=== PATIENT | female | born 1990 | race Caucasian/White ===

== ENCOUNTER 2016-10-15 20:07 | Observation (INO) ==
[2016-10-15] MEDS ORDERED: ZOFRAN IV ONE (20:33)
[2016-10-15] MEDS ORDERED: MORPHINE IV ONE (20:33)
--- NOTE | 2016-10-15 20:36 | PROVIDER DOCUMENTATION ---
HPI-Abdominal Pain/GI Problem - General Source: patient - History of Present Illness-ABD Nature of Presenting Problems: Pt is a 26 yof who presents to ER via EMS with CC of generalized abdominal pain and body swelling. Pt reports that she has been having these symptoms intermittently since the beginning of the year. Pt reports that she does not attend dialysis anymore because her doctor told her that her kidney function was returning. Pt reports that she is producing urine and is on 160 mg lasix. Pt denies dysuria/hematuria/F/cough/sore throat. On exam, pt has anisocoria, and +4 pitting edema everywhere and was hypertensive (157/139)-(172/133). On exam, pt also has petechiae. 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 denies: anxiety, arm pain, chest pain, constipation, cough, diaphoresis, dizziness, fatigue, fever/chills, headaches, loss of appetite, muscle aches, nausea, pain with inspiration, syncope, vomiting, weakness, trouble walking Last BM: this evening Dark Stools Present?: reports: none noticed Rectal Bleeding: reports: none Rectal Pain: reports: none Emesis Description: reports: none <Zackary Tripp - Last Filed: 10/15/16 21:44> <Warren Mondragon - Last Filed: 10/15/16 21:50> - General Stated Complaint: abdominal pain Time Seen by Provider: 10/15/16 20:10 Allergies/Adverse Reactions: Patient Allergies Allergy/AdvReac Type Severity Reaction Status Date / Time No Known Allergies Allergy Verified 10/15/16 20:49 Home Medications: Home Medication List Medication Instructions Recorded Confirmed Last Taken Type Levothyroxine [Synthroid] 100 microgm PO DAILY 08/22/16 10/11/16 10/10/16 History Ergocalciferol (Vitamin D2) 50,000 unit PO Q7D #12 capsule 09/09/16 10/11/1617 Rx [Vitamin D] Escitalopram [Lexapro] 10 mg PO QPM #60 tablet 09/09/16 10/11/16 10/10/16 Rx Levetiracetam [Keppra] 500 mg PO BID #60 tablet 09/09/16 10/11/16 10/10/16 Rx Multivitamins/Minerals [Centrum 1 each PO DAILY #0 tablet 09/09/16 10/11/16 Rx Tablet] Furosemide [Lasix] 80 mg PO BID #60 tablet 10/08/16 10/11/16 10/10/16 Rx Omeprazole [Prilosec] 40 mg PO DAILY@0700 #30 capsule 10/08/16 10/11/16 Rx CefDINIR [Omnicef] 300 mg PO DAILY #7 capsule 10/13/16 Unknown Rx Clonidine [Catapres] 0.1 mg PO BID #60 tablet 10/13/16 Unknown Rx Potassium Chloride E.r. [Klor-Con] 30 meq PO DAILY #40 tablet 10/13/16 Unknown Rx Prednisone 60 mg PO DAILY #0 tablet 10/13/16 Unknown Rx Review of Systems - Adult - REVIEW OF SYSTEMS - ADULT Constitutional: denies: chills, fever, fatique, night sweats Eyes: reports: other (anisocoria). denies: dry eyes, blurred vision, double vision, eye pain Ears, Nose, Mouth & Throat: reports: no symptoms reported Cardiovascular: reports: edema. 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 denies: chronic cough , cough, dyspnea on exertion, excessive sputum production, hemoptysis, pleurisy , wheezing Gastrointestinal: reports: abdominal pain, diarrhea. denies: hematemesis, constipation, difficulty swallowing, frequent heartburn, nausea, poor appetite, rectal bleeding, vomiting Genitourinary: denies: dysuria, flank pain, frequent UTI's, hematuria Musculoskeletal: reports: back pain, joint swelling. denies: bone pain, frequent leg cramps, joint pain, muscle aches, muscle weakness, neck pain Integumentary: reports: rash (petechiae on abdomen), skin thickening (+4 pitting edema). denies: hives, hair loss, itching, mole changes, nail changes, skin sores/ulcer Neurological: reports: no symptoms reported Psychiatric: reports: no symptoms reported Endocrine: denies: change in skin pigment, excessive sweating, goiter, cold intolerance, heat intolerance, increased hunger, increased thirst, polyuria Hematologic/Lymphatic: reports: no symptoms reported Allergic/Immunologic: reports: no symptoms reported All Other Systems: Reviewed and Negative <TrippZackary - Last Filed: 10/15/16 21:44> Past History - Adult - PAST MEDICAL HISTORY-ADULT Review of Records: reports: Nursing Assessment Review, Medications Reviewed Genitourinary: reports: kidney disease (acute kidney failure) - PRIOR SURGERIES/PROCEDURES Surgical/Procedure History: reports: reviewed, not pertinent - IMMUNIZATION STATUS Childhood Immunizations: See Nurse Assessment Flu Vaccine: See Nurse Assessment <Zackary Tripp - Last Filed: 10/15/16 21:44> Physical Exam-General - PHYSICAL EXAM-ADULT Initial Vital Signs Reviewed: Yes - CONSTITUTIONAL General Appearance: appears well, alert, severe distress. negative: obese, lethargic, slow to respond, obtunded, combative - EYES Eyes: anisocoria, pale conjunctivae. negative: photophobia, scleral icterus, subconjunctival hemorrhage, sunken eyes - RESPIRATORY Respiratory: chest non-tender, lungs clear, normal breath sounds. negative: respiratory distress, decreased breath sounds, accessory muscle use, crackles, rales, rhonchi, stridor, wheezing - CARDIOVASCULAR Cardiovascular: normal peripheral pulses, tachycardia, other (HTN (157/139)-(172 /133)). negative: bradycardia - GASTROINTESTINAL (ABDOMEN) Abdominal Exam: soft, tenderness (generalized), other (rash (petechiae)). negative: non tender, hernia - MUSCULOSKELETAL Back Exam: no CVA tenderness, no vertebral tenderness, swelling. negative: CVA tenderness, decreased range of motion, muscle spasm, vertebral tenderness Extremity: normal range of motion, non-tender, normal gait, pedal edema (+4), swelling. negative: no pedal edema, erythema, inflammation, tenderness - SKIN Integumentary: petechiae (abdomen), swelling, tenderness (abdominal). negative : diaphoresis, erythema, pallor - NEUROLOGIC Neurologic: grossly normal, no motor/sensory deficits. negative: facial droop, focal weakness, motor weakness, sensory deficit - PSYCHIATRIC Psych/Mental Status: normal mood/affect, normal thought content, normal thought process, oriented x 3 <Zackary Tripp - Last Filed: 10/15/16 21:44> Progress - PLAN OF CARE/RESULTS Progress/Plan/Lab Results: POC: (B/P-pain)rx; blood work; X-rays. Vital Signs - 24 hr 10/15/16 10/15/16 10/15/16 20:30 20:55 21:05 Temperature 97.8 F Pulse Rate 90 97 H Respiratory 18 16 Rate Blood Pressure 157/139 172/133 145/121 O2 Sat by Pulse 99 95 Oximetry 10/15/16 21:33 Temperature Pulse Rate 133 H Respiratory 20 Rate Blood Pressure 116/75 O2 Sat by Pulse 97 Oximetry Orders Category Date Time Status FLAT/UPRIGHT ABD/1 VIEW CHEST [RAD] Stat Exams 10/15/16 20:32 Taken CBC WITH ELECTRONIC DIFF [HEME] Stat Lab 10/15/16 20:15 Completed CMP [COMPREHENSIVE METABOLIC PANEL] [CHEM] Stat Lab 10/15/16 20:15 Completed LIPASE [CHEM] Stat Lab 10/15/16 20:15 Completed MAGNESIUM [CHEM] Stat Lab 10/15/16 20:15 Completed phos [PHOSPHORUS] [CHEM] Stat Lab 10/15/16 20:15 Completed Hydralazine [Apresoline] Med 10/15/16 21:08 Discontinued 20 mg IV NOW ONE Morphine Med 10/15/16 20:33 Discontinued 4 mg IV NOW ONE Ondansetron [Zofran] Med 10/15/16 20:33 Discontinued 4 mg IV NOW ONE Laboratory Tests 10/15/16 10/15/16 20:15 20:15 WBC 19.27 H RBC 3.88 L Hgb 12.4 Hct 33.5 L MCV 86.3 MCH 32.0 H MCHC 37.0 RDW Std Deviation 15.4 H Plt Count 570 H MPV 9.6 Immature Gran % (Auto) 2.2 H Neut % (Auto) 78.6 H Lymph % (Auto) 13.9 L [place] % (Auto) 5.0 Eos % (Auto) 0.2 Baso % (Auto) 0.1 Immature Gran # (Auto) 0.42 H Neut # (Auto) 15.17 H Lymph # (Auto) 2.67 [place] # (Auto) 0.96 H Eos # (Auto) 0.03 Baso # (Auto) 0.02 Sodium 128 L Potassium 4.0 Chloride 100 Carbon Dioxide 14 L Anion Gap 14 BUN 54 H Creatinine 1.5 H Estimated GFR/1.73 m2 43 BUN/Creatinine Ratio 36 Glucose 102 Calculated Osmolality 272 Calcium 7.5 L Phosphorus 6.0 H Magnesium 1.7 Total Bilirubin < 0.10 L AST 22 ALT 19 Alkaline Phosphatase 96 Total Protein 3.6 L Albumin 1.2 L Globulin 2.4 Albumin/Globulin Ratio 0.5 Lipase 56 - XRAY 1 XRAY: Bilateral XRAY Study: Abdomen Impression: See EMR Report XRAY Interpretation: Worsening pleural effusions, otherwise normal - CONSULTS/PCP/HOSPITALIST Notification #1 *Consult/PCP/Hospitalist*: Dr. Faye (Hospitalist) Time Discussed: 21:44 Consult Disposition: Admit (Dr. Mondragon gave report to Dr. Faye) <Zackary Tripp - Last Filed: 10/15/16 21:44> Departure <Zackary Tripp - Last Filed: 10/15/16 21:44> - Departure Time of Disposition Order: 21:50 Certified Medical Emergency: Emergent <Warren Mondragon - Last Filed: 10/15/16 21:50> - Departure DIAGNOSIS: Anasarca Disposition: ADMITTED INPATIENT 09 Condition: Fair Referrals: None,PCP [Primary Care Provider] - Attestation - Scribe Verification/Attestation Scribe:: Zackary Tripp Acting as Scribe for:: Warren Mondragon Scribe documention review:: This chart was documented by a scribe and accurately reflects the service the provider performed and the decisions made by the provider. <Zackary Tripp - Last Filed: 10/15/16 21:44> Physician Attestation
[2016-10-15] MEDS ORDERED: APRESOLINE IV ONE ×2 (20:49→21:08)
[2016-10-15 20:57] LABS: BASO% 0.1 % (0.0-0.8); EOS# 0.03 X1000 (0.0-0.7); EOS% 0.2 % (0.0-10.0); HEMATOCRIT 33.5 % (37.0-47.0); HEMOGLOBIN 12.4 g/dL (12.0-16.0); IMM GRAN# 0.42 X1000 (0.0-0.04); IMM GRAN% 2.2 % (0.0-0.5); LYMPH# 2.67 X1000 (1.2-3.4); LYMPH% 13.9 % (20.5-51.1); MANUAL DIFF NEEDED? NO; MCV 86.3 FL (81-99); MONO# 0.96 X1000 (0.11-0.59); MPV 9.6 FL (7.4-10.4); NEUT% 78.6 % (42.2-75.2); PLT 570 X1000 (130-400); RBC 3.88 XMIL (4.2-5.4)
[2016-10-15 21:36] LABS: AGAP 14; ALBUMIN 1.2 g/dL (3.5-5.0); ALKALINE PHOSPHATASE 96 U/L (32-104); BUN 54 mg/dL (8-22); CALCIUM 7.5 mg/dL (8.8-10.2); CHLORIDE 100 mmol/L (98-107); COSMO 272; GOT 22 U/L (10-30); GPT 19 U/L (10-36); LIPASE 56 U/L (13-60); MAGNESIUM 1.7 mg/dL (1.5-2.7); SODIUM 128 mmol/L (136-145); TCO2 14 mmol/L (25-35); TOTAL BILIRUBIN < 0.10 mg/dL (0.20-1.00); TOTAL PROTEIN 3.6 g/dL (6.3-8.3)
[2016-10-15 22:58] LABS: URINE MICRO REVIEW NEEDED? NO; URINE SOURCE VOIDED
[2016-10-15 23:01] LABS: BILIRUBIN URINE NEGATIVE (NEGATIVE); BLOOD URINE MODERATE (NEGATIVE); COLOR YELLOW; GLUCOSE URINE 500 mg/dL (NEGATIVE); LEUKOCYTES URINE NEGATIVE (NEGATIVE); NITRITE URINE NEGATIVE (NEGATIVE); PH URINE 6.5; PROTEIN URINE >600 mg/dL (NEGATIVE); SP GRAVITY URINE 1.033; TURBIDITY URINE HAZY (CLEAR); UROBILINOGEN URINE NORMAL (NORMAL)
[2016-10-15 23:02] LABS: UR EPITHELIAL CELLS <10 /HPF (<10); URINE BACTERIA NEGATIVE /HPF; URINE WBC TNTC /HPF (<10)
[2016-10-15] MEDS ORDERED: ZOFRAN IV PRN (23:28)
[2016-10-15] MEDS ORDERED: TYLENOL PO PRN (23:28)
[2016-10-15] MEDS ORDERED: LASIX 100 MG in NS 90 ML IV SCH (23:30)
[2016-10-16] MEDS ORDERED: MORPHINE IV PRN (00:03)
[2016-10-16 01:01] LABS: INR 0.9; PROTIME 9.5 Seconds (9.2-11.7)
[2016-10-16] MEDS: HEPARIN SUBQ SCH ×2 (01:05→12:40)
--- NOTE | 2016-10-16 03:06 | HISTORY AND PHYSICAL ---
CHIEF COMPLAINT: Abdominal discomfort and bloating but she has also had progressive swelling. Unclear if that is a big change from her baseline but she does have significant pitting edema of her lower extremities at least 2 to 3+. She has had abdominal complaints mostly having difficulty eating because of bloating and issues associated with that. Her urinary output has not changed. She is on high-dose Lasix and has been off of dialysis for about a month. But she has had progressive abdominal swelling, progressive lower extremity swelling, and difficulty eating. No trevor obstructive signs. Blood work in the ER was not a big change from previous. Her creatinine has been fairly stable. She just left I think a couple days ago or just had labs a couple days ago. Her albumin is very low but is about where it was about 2 days ago and it looks like she was discharged the , kind of was at baseline. No nausea, vomiting, but poor p.o. intake. Again, her labs looked fairly stable. She was placed in observation for her abdominal discomfort or at least I am going to change her status. PAST MEDICAL HISTORY: 1. 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 2. Dyslipidemia. 3. Seizures. 4. Hypertension. PAST SURGICAL HISTORY: She has a dialysis catheter. SOCIAL HISTORY: No tobacco. No ethanol. She quit alcohol maybe last year and no tobacco for at least the last month. FAMILY HISTORY: Reviewed and noncontributory. ALLERGIES: No known drug allergies. MEDICATIONS: She is on Synthroid, multivitamin, Keppra, Lexapro 10, vitamin D2, Lasix 80 b.i.d., Prilosec 40 daily, clonidine 0.1 b.i.d., Klor-Con 30 daily, Omnicef 300 daily and prednisone 60 daily. REVIEW OF SYSTEMS: Otherwise negative times a 10 point review of systems. PHYSICAL EXAMINATION: VITAL SIGNS: Blood pressure 137/87, heart rate of 119, respiratory rate of 16, temp 97.8 degrees, 93% on room air. GENERAL: A well-developed female, no acute distress. HEAD: Normocephalic, atraumatic. EYES: Pupils equal, round, reactive to light. Extraocular movements were intact. EAR/NOSE/THROAT: She had moist mucous membranes. NECK: Supple. CARDIOVASCULAR: Regular rate and rhythm. No murmurs, gallops, or rubs. PULMONARY: Bilateral breath sounds clear to auscultation. GASTROINTESTINAL: Soft, protuberant. I did not appreciate a fluid wave. EXTREMITIES: No clubbing or cyanosis. LYMPHATIC: She had 2+ pitting edema up to her knees. She had periorbital edema. It is certainly possible she has ascites on exam but it was not grossly obvious. NEUROLOGICAL: Exam was nonfocal. LABORATORY DATA: Sodium is 128. BUN and creatinine of 54 and 1.5 which is not different from where it has been. Albumin of 1.2. Triglycerides are 1965 previously. Hematology: Her white count has jumped up to 19,000 but I think she has been on high-dose steroids since discharge which again was only a couple days ago which presumably is for her minimal change disease. PROBLEM LIST: 1. Anasarca which is a fairly chronic issue with her. Again, I am not sure how she is compared to her baseline. Her weight, she has not been weighed here. Difficult to compare that. Clinically, I am not sure how far off she is there. However, we will go ahead and give her IV diuretic and albumin and continue her steroids and we will have Dr. Jiménez and Dr. Roldan reassess the patient tomorrow and decide if any further issues are needed. 2. Abdominal discomfort. Certainly there was a concern in the ER per Dr. Mondragon about bowel edema which certainly could be a concern. At this point, there is no gross evidence of obstruction or malabsorption so we will continue her diet and observe. I believe plain films have been obtained which have been unremarkable. We will check amylase, lipase and hepatic function, and follow. 3. Hypertension. We will continue to monitor and use discretion on her medications, adjust her medicines accordingly. She is on clonidine at this point alone. She is tachycardic. We may need to add beta hector and follow. 4. Seizure disorder, appears to be stable. We will continue to monitor. Apparently, Dr. Jiménez is her PCP. I was unaware of that initially. He will resume care or his group tomorrow.
[2016-10-16] MEDS ORDERED: ALBUMIN 25% IV SCH ×2 (03:15→04:00)
[2016-10-16] MEDS ORDERED: SYNTHROID PO SCH ×2 (07:00→09:00)
[2016-10-16] MEDS ORDERED: PRILOSEC PO SCH (07:00)
[2016-10-16] MEDS ORDERED: MAXIPIME 1 GM/NS 50 ML IV SCH (07:30)
[2016-10-16 07:39] LABS: AMYLASE 45 U/L (20-200); LIPASE 43 U/L (13-60)
[2016-10-16 07:46] LABS: AGAP 14; ALBUMIN 2.1 g/dL (3.5-5.0); ALKALINE PHOSPHATASE 79 U/L (32-104); BUN 58 mg/dL (8-22); CALCIUM 7.9 mg/dL (8.8-10.2); CHLORIDE 104 mmol/L (98-107); COSMO 278; SODIUM 131 mmol/L (136-145); TCO2 13 mmol/L (25-35); TOTAL BILIRUBIN < 0.10 mg/dL (0.20-1.00); TOTAL PROTEIN 4.1 g/dL (6.3-8.3)
[2016-10-16 08:13] LABS: GOT 13 U/L (10-30); GPT 17 U/L (10-36)
[2016-10-16 08:57] VITALS: BP 152/98
[2016-10-16] MEDS ORDERED: KLOR-CON PO SCH (09:00)
[2016-10-16] MEDS ORDERED: PREDNISONE PO SCH (09:00)
[2016-10-16] MEDS ORDERED: KEPPRA PO SCH (09:00)
[2016-10-16] MEDS ORDERED: CATAPRES PO SCH ×2 (09:00→10:00)
[2016-10-16] MEDS ORDERED: CENTRUM TABLET PO SCH ×2 (09:00)
[2016-10-16] MEDS ORDERED: OMNICEF PO SCH ×2 (09:00)
--- NOTE | 2016-10-16 09:39 | Diag Imaging Result Document ---
PROCEDURE NAME: FLAT/UPRIGHT ABD/1 VIEW CHEST - 10/15/2016 FLAT AND UPRIGHT ABDOMEN: FINDINGS: There are some air fluid levels present in the colon. The stomach is not particularly distended. There is some gas in the rectum. The possibility of ascites cannot be excluded. There is no evidence of organomegaly or definite mass. IMPRESSION: Nonspecific abdomen. Possible ascites. PA CHEST: FINDINGS: There is increased pleural fluid on the right compared to 10/13/2016 with increasing compressive atelectasis in both lung bases. IMPRESSION: Worsened pleural effusions and atelectasis.
[2016-10-16] MEDS ORDERED: MIRALAX PO SCH (10:00)
--- NOTE | 2016-10-16 10:02 | Diag Imaging Result Document ---
PROCEDURE NAME: US ABDOMEN-COMPLETE - 10/16/2016 ABDOMINAL ULTRASOUND: FINDINGS: The aorta and inferior vena cava are normal in appearance. There is ascites. The liver is hyperechoic in appearance. The spleen is not enlarged. There is no evidence of hydronephrosis, however, the kidneys are somewhat hyperechoic in appearance. There is no evidence of biliary dilatation. The common bile duct measuring less than 4 mm. There is antegrade flow in the portal vein. The pancreas is obscured. The gallbladder is not well demonstrated but there is no sonographic Damon sign. No stones were seen in the gallbladder at the time of the previous study of 08/22/2016. The spleen is not enlarged. IMPRESSION: Ascites. Medical renal disease. No evidence of acute disease otherwise.
[2016-10-16 10:33] LABS: HEMATOCRIT 27.2 % (37.0-47.0); MCH 33.1 PG (27-31); MCHC 36.8 g/dL (33-37); MCV 90.1 FL (81-99); MPV 9.2 FL (7.4-10.4); RBC 3.02 XMIL (4.2-5.4)
--- NOTE | 2016-10-16 11:39 | PROGRESS NOTE ---
DATE: 10/16/2016 SUBJECTIVE: Patient has returned overnight after recent hospitalization. She had complained of some gas pain, abdominal pain. She has prominent ascites which is going to be present. Dr. Roldan has made her aware of this. She is stooling about every other day. She has taken some Tylenol but from time to time has sharp stabbing pains in the abdomen. We reviewed the abdominal ultrasound from this morning which shows ascites and medical renal disease. Otherwise negative. Patient also with flat and upright of the abdomen which shows pleural effusions and compressive atelectasis both lungs, nonspecific abdomen, ascites noted. OBJECTIVE: Patient is saturating 95-97% on room air. She is lying flat. She is afebrile. Pulse 77, respirations 20, blood pressure 152/98. CV: RRR without murmur. Lungs: CTA. Cannot rule out minimal decreased breath sounds at lung bases but no crackles. Abdomen: Is very protuberant, she does have a prominent ascites, there is no point tenderness. Extremities: Two to 3+ lower extremity edema is noted. She states she is putting out a lot of urine at home. [place]: [place] [address] on prednisone at 60 mg daily. Hemoglobin 12.4, platelets 570,000. Sodium 131, potassium 4.0, CO2 13. BUN 58, creatinine 1.5, glucose 91. Liver function tests are normal. Amylase, lipase normal. TSH 0.18. ASSESSMENT: 1. Abdominal pain thought related to the ascites and prominent gas pain. 2. Anasarca related to renal insufficiency and renal disease associated with nephrotic syndrome and possible minimal change disease. 3. Hypertension. 4. Seizure disorder. 5. Compressive atelectasis. PLAN: At this time the patient does not appear to show any significant change from her recent discharge from the hospital except for the gas pains. We are going to treat that with Gaviscon 2 p.o. b.i.d. Add MiraLAX every day to see if that will help her bowel movements. We will continue to try to refrain from any prominent pain medications such as narcotics which might make her have OIC. We will give clonidine at increased dose of 0.[address] Roldan has spoken with the patient. He has spoken with me in detail about the patient. He plans on consideration for repeat kidney biopsy in 3 weeks or if the patient does not show improvement. For now advised continued fluid limitation to 16 ounces a day, low sodium diet which is imperative. We will try these measures and discharge the patient home if okay with Dr. Roldan after he sees her this morning. She will follow up in my office in 3-4 days or sooner. Should she worsen she can come back to the ER.
[2016-10-16] MEDS ORDERED: GAVISCON LIQUID PO SCH (13:00)
[2016-10-16] MEDS ORDERED: GAVISCON PO SCH (13:00)
[2016-10-16] MEDS ORDERED: LEXAPRO PO SCH ×2 (21:00)
[2016-10-17] MEDS ORDERED: VITAMIN D PO SCH ×2 (09:00)
[2016-10-17] MEDS ORDERED: OMNICEF PO SCH (09:00)
== END 2016-10-16 15:11 | disposition home or self-care (01) ==
LOC: EDBD → ED 20:07 → INTOOBSV 23:31 → EDIPHOLD 23:31 → 4N 10-16 05:34
PROVIDERS: ADMIT Family Medicine; ATTEND Family Medicine
DX: R60.9 Edema, unspecified (principal); R10.84 Generalized abdominal pain; I10 Essential (primary) hypertension; R23.3 Spontaneous ecchymoses; M54.9 Dorsalgia, unspecified; M54.2 Cervicalgia; R19.7 Diarrhea, unspecified; R21 Rash and other nonspecific skin eruption; R06.02 Shortness of breath; R19.00 Intra-abdominal and pelvic swelling, mass and lump, unspecified site; E78.5 Hyperlipidemia, unspecified; Z87.891 Personal history of nicotine dependence; Z79.899 Other long term (current) drug therapy; G40.909 Epilepsy, unspecified, not intractable, without status epilepticus; R18.8 Other ascites; R14.3 Flatulence; J98.11 Atelectasis; N04.9 Nephrotic syndrome with unspecified morphologic changes; Z79.51 Long term (current) use of inhaled steroids
CPT/HCPCS: 74022; 76700; 80053; 81001; 82150; 83690; 83735; 84100; 84443; 85025; 85027; 85610; 85730; 96374; J0360; J0692; J1644; J1940; J2270; J2405; J7512; P9047

== ENCOUNTER 2016-10-19 09:37 | Emergency (ER) ==
--- NOTE | 2016-10-19 09:54 | PROVIDER DOCUMENTATION ---
HPI-General Adult - General Source: patient - History of Present Illness -Gen Adult Nature of Presenting Problems: Patient is a 26 y/o F that presents to the ER with swelling to entire body and chest pain. Patient reports having issues since 2015. She was placed on dialysis for kidney failure. Dialysis was stopped due her kidney function improving around her birthday (09/28/2014). Since then she has edema that has increased, shortness of breath, and chest pain. She has petichae to her abdomen. She denies fever/chills, n/v/d. Location of Pain/Injury: reports: face, abdomen, lower body Pain Radiation: reports: no radiation Severity: reports: moderate Onset/Duration: reports: unsure Timing: reports: still present, constant Context/Activities at Onset: reports: none Modifying Factors: improves with: nothing Associated Symptoms: reports: chest pain, genitourinary problems, swelling/mass in abdomen. denies: diaphoresis, diarrhea, dizziness, fever/chills, nausea, shortness of breath, vomiting Similar Symptoms Previously?: Yes Recently seen or treated by another doctor?: Yes <Keanu Cedeño - Last Filed: 10/19/16 11:30> <Manuel Siegel I - Last Filed: 10/19/16 11:45> - General Stated Complaint: swelling all over Time Seen by Provider: 10/19/16 09:47 Allergies/Adverse Reactions: Patient Allergies Allergy/AdvReac Type Severity Reaction Status Date / Time No Known Allergies Allergy Verified 10/19/16 09:52 Home Medications: Home Medication List Medication Instructions Recorded Confirmed Last Taken Type Levothyroxine [Synthroid] 100 microgm PO DAILY 08/22/16 10/19/16 10/19/16 08:00 History Ergocalciferol (Vitamin D2) 50,000 unit PO Q7D #12 capsule 09/09/16 10/19/16 Rx [Vitamin D] Escitalopram [Lexapro] 10 mg PO QPM #60 tablet 09/09/16 10/19/16 10/15/16 Rx Levetiracetam [Keppra] 500 mg PO BID #60 tablet 09/09/16 10/19/16 10/15/16 Rx Multivitamins/Minerals [Centrum 1 each PO DAILY #0 tablet 09/09/16 10/19/16 Rx Tablet] Furosemide [Lasix] 80 mg PO BID #60 tablet 10/08/16 10/19/16 10/15/16 Rx Potassium Chloride E.r. [Klor-Con] 30 meq PO DAILY #40 tablet 10/13/16 10/19/16 10/15/16 Rx Prednisone 60 mg PO DAILY #0 tablet 10/13/16 10/19/16 10/19/16 08:00 Rx Acetaminophen [Tylenol] 650 mg PO Q6H PRN PRN #0 tablet 10/16/16 10/19/16 Unknown Rx Clonidine [Catapres] 0.2 mg PO BID #60 tablet 10/16/16 10/19/16 Unknown Rx Metolazone [Zaroxolyn] 5 mg PO DAILY #30 tablet 10/19/16 Unknown Rx Review of Systems - Adult - REVIEW OF SYSTEMS - ADULT Constitutional: denies: chills, fever Eyes: reports: no symptoms reported Ears, Nose, Mouth & Throat: denies: ear discharge, ear pain, sinus problem, throat pain, throat swelling Cardiovascular: reports: chest pain, edema (face, abdomen, bilateral lower legs) . denies: palpitations, syncope Respiratory: denies: cough, shortness of breath, wheezing Gastrointestinal: denies: abdominal pain, diarrhea, nausea, vomiting Genitourinary: reports: urinary retention. denies: dysuria, hematuria Musculoskeletal: denies: back pain, neck pain Integumentary: reports: no symptoms reported Neurological: denies: dizziness/vertigo, headache/migraines, seizure, syncope Psychiatric: reports: no symptoms reported Endocrine: reports: no symptoms reported Hematologic/Lymphatic: reports: no symptoms reported Allergic/Immunologic: reports: no symptoms reported All Other Systems: Reviewed and Negative <Keanu Cedeño - Last Filed: 10/19/16 11:30> Past History - Adult - PAST MEDICAL HISTORY-ADULT Review of Records: reports: Old Records Reviewed, Nursing Assessment Review, Medications Reviewed Genitourinary: reports: dialysis (last one was sep.28 ( estimate by patient)) , kidney disease (acute kidney failure with nephrotic syndrome) Neurological: reports: denies history, Seizures/Epilepsy Endocrine/Immune: reports: thyroid disorder (hypo) - PRIOR SURGERIES/PROCEDURES Surgical/Procedure History: reports: reviewed, not pertinent - IMMUNIZATION STATUS Childhood Immunizations: See Nurse Assessment Flu Vaccine: See Nurse Assessment - FAMILY HISTORY Family History: reviewed, not pertinent - SOCIAL HISTORY Smoking: quit greater than 1 year, cigarettes Living Situation: family <Keanu Cedeño - Last Filed: 10/19/16 11:30> Physical Exam-General - PHYSICAL EXAM-ADULT Initial Vital Signs Reviewed: Yes - CONSTITUTIONAL General Appearance: alert, mild distress, moderate distress - EYES Eyes: PERRL/EOMI, other (karla-orbital swelling) - HEAD, EARS, NOSE, MOUTH & THROAT HENMT: moist mucous membranes, pharynx normal. negative: hearing deficit - NECK Neck: full range of motion, normal inspection - RESPIRATORY Respiratory: no accessory muscle use, respiratory distress (mild), rales ( bilateral bases) - CARDIOVASCULAR Cardiovascular: regular rate, rhythm, no JVD, no murmur - GASTROINTESTINAL (ABDOMEN) Abdominal Exam: normal bowel sounds, non tender, other (anasarca) - MUSCULOSKELETAL Extremity: no calf tenderness, pelvis stable, pedal edema (4 plus pitting) - SKIN Integumentary: petechiae (to abdomen), swelling. negative: jaundice - NEUROLOGIC Neurologic: grossly normal, no motor/sensory deficits - PSYCHIATRIC Psych/Mental Status: normal mood/affect, normal thought content, normal thought process, oriented x 3 <Keanu Ceedño - Last Filed: 10/19/16 11:30> Progress - PLAN OF CARE/RESULTS Progress/Plan/Lab Results: plan of care-labs 1128-Dr.Gladish irwin Vital Signs Temp Pulse Resp BP Pulse Ox 10/19/16 10:43 80 17 153/112 97 10/19/16 10:36 72 10 L 148/97 100 10/19/16 10:21 77 151/111 98 10/19/16 10:05 81 13 131/98 96 10/19/16 09:39 98.0 F 74 19 148/108 99 No Known Allergies Allergy (Verified 10/19/16 09:52) Levothyroxine [Synthroid] 100 microgm PO DAILY 08/22/16 Ergocalciferol (Vitamin D2) [Vitamin D] 50,000 unit PO Q7D #12 capsule 09/09/16 Escitalopram [Lexapro] 10 mg PO QPM #60 tablet 09/09/16 Levetiracetam [Keppra] 500 mg PO BID #60 tablet 09/09/16 Multivitamins/Minerals [Centrum Tablet] 1 each PO DAILY #0 tablet 09/09/16 Furosemide [Lasix] 80 mg PO BID #60 tablet 10/08/16 Potassium Chloride E.r. [Klor-Con] 30 meq PO DAILY #40 tablet 10/13/16 Prednisone 60 mg PO DAILY #0 tablet 10/13/16 Acetaminophen [Tylenol] 650 mg PO Q6H PRN PRN #0 tablet 10/16/16 Clonidine [Catapres] 0.2 mg PO BID #60 tablet 10/16/16 Dietary Diet Renal Diet Start TueOct 19 1125 I&O 10/18/16 10/19/16 10/20/16 06:59 06:59 06:59 Output Total 50 Balance -50 Laboratory 10/19/16 10/19/16 10/19/16 10:35 09:55 09:55 WBC RBC Hgb Hct MCV MCH MCHC RDW Std Deviation Plt Count MPV Immature Gran % (Auto) Neut % (Auto) Lymph % (Auto) [place] % (Auto) Eos % (Auto) Baso % (Auto) Immature Gran # (Auto) Neut # (Auto) Lymph # (Auto) [place] # (Auto) Eos # (Auto) Baso # (Auto) Sodium 132 L Potassium 4.3 Chloride 106 Carbon Dioxide 13 L Anion Gap 13 BUN 55 H Creatinine 1.3 H Estimated GFR/1.73 m2 50 BUN/Creatinine Ratio 42 Glucose 76 Calculated Osmolality 278 Calcium 7.7 L Total Bilirubin < 0.10 L AST 15 ALT 18 Alkaline Phosphatase 90 Creatine Kinase 45 Troponin T 0.031 Total Protein 3.4 L Albumin 1.3 L Globulin 2.1 Albumin/Globulin Ratio 0.6 Plasma Lactate Urine Source CATH Urine Color ORANGE Urine Turbidity TURBID Urine pH 6.5 Ur Specific [place] 1.028 Urine Protein 300 A Ur Glucose (Stick) 300 A Ur Ketones (Stick) NEGATIVE Urine Blood MODERATE A Urine Nitrite NEGATIVE Urine Bilirubin NEGATIVE Urobilinogen Dipstick NORMAL Urine Leukocytes NEGATIVE Urine WBC (Auto) TNTC A Urine RBC (Auto) TNTC A U Epithel Cells (Auto) >10 A Urine Bacteria (Auto) NEGATIVE Urine Crystals Not Reportable Small Round Cells Not Reportable Urine Casts NONE SEEN Urine Yeast-like Cells PRESENT 10/19/16 10/19/16 09:55 09:55 WBC 16.90 H RBC 3.82 L Hgb 11.9 L Hct 33.5 L MCV 87.7 MCH 31.2 H MCHC 35.5 RDW Std Deviation 16.0 H Plt Count 500 H MPV 9.1 Immature Gran % (Auto) 1.5 H Neut % (Auto) 68.6 Lymph % (Auto) 22.3 [place] % (Auto) 7.3 Eos % (Auto) 0.2 Baso % (Auto) 0.1 Immature Gran # (Auto) 0.25 H Neut # (Auto) 11.59 H Lymph # (Auto) 3.77 H [place] # (Auto) 1.23 H Eos # (Auto) 0.04 Baso # (Auto) 0.02 Sodium Potassium Chloride Carbon Dioxide Anion Gap BUN Creatinine Estimated GFR/1.73 m2 BUN/Creatinine Ratio Glucose Calculated Osmolality Calcium Total Bilirubin AST ALT Alkaline Phosphatase Creatine Kinase Troponin T Total Protein Albumin Globulin Albumin/Globulin Ratio Plasma Lactate 0.8 Urine Source Urine Color Urine Turbidity Urine pH Ur Specific [place] Urine Protein Ur Glucose (Stick) Ur Ketones (Stick) Urine Blood Urine Nitrite Urine Bilirubin Urobilinogen Dipstick Urine Leukocytes Urine WBC (Auto) Urine RBC (Auto) U Epithel Cells (Auto) Urine Bacteria (Auto) Urine Crystals Small Round Cells Urine Casts Urine Yeast-like Cells Orders Category Date Time Status Cardiac Monitoring DIRECTED Care 10/19/16 10:03 Active Conde Cath Insertion ORDERED Care 10/19/16 10:30 Active IV Insertion ORDERED Care 10/19/16 10:03 Active Notify of + Sepsis Screen NOW Care 10/19/16 10:03 Active Renal Diet Diet 10/19/16 11:25 Active CHEST-1 VIEW [RAD] Stat Exams 10/19/16 10:05 Draft BLOOD CULTURE [BLDCUL] Stat Lab 10/19/16 10:00 Received CBC WITH DIFF [HEME] Stat Lab 10/19/16 09:55 Completed CK PROFILE [SP CHEM] Stat Lab 10/19/16 09:55 Completed COMPREHENSIVE METABOLIC PANEL [CHEM] Stat Lab 10/19/16 09:55 Completed LACTATE, PLASMA [CHEM] Stat Lab 10/19/16 09:55 Completed ROUTINE CULTURE [RM] Routine Lab 10/19/16 10:03 Ordered TROPONIN T Stat Lab 10/19/16 09:55 Completed URINALYSIS W/POSS RFLX CULT [URINALYSIS] Stat Lab 10/19/16 10:35 Completed URINE CULTURE [RM] Routine Lab 10/19/16 11:04 Received URINE MANUAL MICROSCOPIC [URINALYSIS] Stat Lab 10/19/16 10:35 Completed Oxygen Device Stat Oth 10/19/16 10:03 Active pt will be d/c home f/u with , pt was clinically stable for her condition. Rx given - EKG 1 Time of EKG reading by physician:: 09:45 EKG Read and Signed by:: Manuel Siegel EKG Interpretation (*Must complete 3 of following elements*): Abnormal Rate: 79 Rhythm: Sinus Rhythm with PVCs [place]: normal QRS: normal MD Interval: normal ST Wave: normal - XRAY 1 XRAY Study: Chest Impression: Abnormal XRAY Interpretation: slight worsening pulmonary vascular congestion, Bilateral pleural effusion - CONSULTS/PCP/HOSPITALIST Notification #1 *Consult/PCP/Hospitalist*: (nephrology) Time Discussed: 11:30 Reason/Comments: follows her in clinic Consult Disposition: F/U in office (Add metolozone 3 days on and 3 days off. Continue home meds. No need for dialysis. No need for admission) <Keanu Cedeño - Last Filed: 10/19/16 11:30> - PLAN OF CARE/RESULTS Progress/Plan/Lab Results: 1140: case discusse with Dr. Roldan (activities director), who recommends zaroxyln (3 days on and 3 days off). She is to continue the prednisone and follow up as needed with her pcp. <Manuel Siegel I - Last Filed: 10/19/16 11:45> Departure - Departure Certified Medical Emergency: Emergent <Keanu Cedeño - Last Filed: 10/19/16 11:30> - Departure Time of Disposition Order: 11:42 Certified Medical Emergency: Emergent <Manuel Siegel I - Last Filed: 10/19/16 11:45> - Departure DIAGNOSIS: Anasarca, Nephrotic syndrome Disposition: HOME 01 Condition: Stable Additional Instructions: ED Follow Up Instructions: You have been treated by a care provider in the Emergency Department. These instructions are being provided to you so you can have an understanding of how to care for yourself upon discharge. Upon discharge from the Emergency Department, you are responsible for making arrangements for follow-up care by a physician of your choice. Take all prescribed medications as directed. Return to the Emergency Department immediately for any new or worsening symptoms. You may call the Physician Referral phone number at [phone] to obtain a list of Physicians who are taking new patients. Prescriptions: Metolazone [Zaroxolyn] 5 mg PO DAILY #30 tablet Referrals: Fantasma Jiménez MD [Primary Care Provider] - (as needed) Arnav Roldan MD [STAFF PHYSICIAN] - Call for Appoint. 1-2days Attestation - Scribe Verification/Attestation Scribe:: Keanu Cedeño Acting as Scribe for:: Manuel Siegel Scribe documention review:: This chart was documented by a scribe and accurately reflects the service the provider performed and the decisions made by the provider. <Keanu Cedeño - Last Filed: 10/19/16 11:30> Physician Attestation - Physician Attestation I, the provider, attest to the following statement:: Manuel Siegel Physician documentation Attestation:: This documentation recorded by the scribe accurately reflects the service I personally performed and the decisions made by me. <Keanu Cedeño - Last Filed: 10/19/16 11:30> - Physician Attestation I, the provider, attest to the following statement:: Manuel Siegel Physician documentation Attestation:: This documentation recorded by the scribe accurately reflects the service I personally performed and the decisions made by me. <Manuel Siegel I - Last Filed: 10/19/16 11:45>
[2016-10-19 10:12] LABS: MANUAL DIFF NEEDED? NO
[2016-10-19 10:16] LABS: BASO% 0.1 % (0.0-0.8); EOS# 0.04 X1000 (0.0-0.7); EOS% 0.2 % (0.0-10.0); HEMATOCRIT 33.5 % (37.0-47.0); HEMOGLOBIN 11.9 g/dL (12.0-16.0); IMM GRAN# 0.25 X1000 (0.0-0.04); IMM GRAN% 1.5 % (0.0-0.5); LYMPH# 3.77 X1000 (1.2-3.4); LYMPH% 22.3 % (20.5-51.1); MCH 31.2 PG (27-31); MCHC 35.5 g/dL (33-37); MCV 87.7 FL (81-99); MONO# 1.23 X1000 (0.11-0.59); MONO% 7.3 % (1.7-9.3); MPV 9.1 FL (7.4-10.4); NEUT% 68.6 % (42.2-75.2); PLT 500 X1000 (130-400); RBC 3.82 XMIL (4.2-5.4)
[2016-10-19 10:51] LABS: URINE SOURCE CATH
--- NOTE | 2016-10-19 10:53 | Diag Imaging Result Document ---
PROCEDURE NAME: CHEST-1 VIEW - 10/19/2016 PORTABLE CHEST X-RAY, 10/19/2016: COMPARISON: 10/15/2016. FINDINGS: There is a moderate to large right pleural effusion, stable from prior. There is probably also a left pleural effusion. There is slight worsening central pulmonary vascular congestion. Heart size remains top normal. IMPRESSION: Slight worsening pulmonary vascular congestion. Bilateral pleural effusions.
[2016-10-19 10:55] LABS: AGAP 13; ALBUMIN 1.3 g/dL (3.5-5.0); ALKALINE PHOSPHATASE 90 U/L (32-104); BUN 55 mg/dL (8-22); CALCIUM 7.7 mg/dL (8.8-10.2); CHLORIDE 106 mmol/L (98-107); CK PROFILE 45 U/L (24-173); COSMO 278; GOT 15 U/L (10-30); GPT 18 U/L (10-36); POTASSIUM 4.3 mmol/L (3.5-5.1); SODIUM 132 mmol/L (136-145); TCO2 13 mmol/L (25-35); TOTAL BILIRUBIN < 0.10 mg/dL (0.20-1.00); TOTAL PROTEIN 3.4 g/dL (6.3-8.3)
[2016-10-19 10:57] LABS: BILIRUBIN URINE NEGATIVE (NEGATIVE); BLOOD URINE MODERATE (NEGATIVE); COLOR ORANGE; GLUCOSE URINE 300 mg/dL (NEGATIVE); LEUKOCYTES URINE NEGATIVE (NEGATIVE); NITRITE URINE NEGATIVE (NEGATIVE); PH URINE 6.5; PROTEIN URINE 300 mg/dL (NEGATIVE); SP GRAVITY URINE 1.028; TURBIDITY URINE TURBID (CLEAR); UROBILINOGEN URINE NORMAL (NORMAL)
[2016-10-19 11:01] LABS: UR EPITHELIAL CELLS >10 /HPF (<10); URINE BACTERIA NEGATIVE /HPF; URINE CULTURE NEEDED? YES; URINE MICRO REVIEW NEEDED? YES; URINE RBC TNTC /HPF (<10); URINE WBC TNTC /HPF (<10)
[2016-10-19 11:14] LABS: URINE CASTS NONE SEEN
[2016-10-19] MEDS ORDERED: ZAROXOLYN PO ONE (11:38)
[2016-10-19 12:45] VITALS: BP 136/113
--- NOTE | 2016-10-19 13:51 | EKG Report ---
Test Performed on : 10/19/2016 09:45:26 AM Test Reason : EDEMA Blood Pressure : / mmHG Vent. Rate : 079 BPM Atrial Rate : 079 BPM P-R Int : 118 ms QRS Dur : 068 ms QT Int : 364 ms P-R-T Axes : 012 019 036 degrees QTc Int : 417 ms Sinus rhythm. with occasional premature ventricular complexes. Otherwise normal ECG When compared with ECG of 02-OCT-2016 23:19, premature ventricular complexes. are now present Unconfirmed Result
== END 2016-10-19 13:02 | disposition home or self-care (01) ==
LOC: EDBD → ED 09:37
DX: R60.1 Generalized edema (principal); N05.9 Unspecified nephritic syndrome with unspecified morphologic changes; R07.9 Chest pain, unspecified; R33.9 Retention of urine, unspecified; E03.9 Hypothyroidism, unspecified; R56.9 Unspecified convulsions; Z87.891 Personal history of nicotine dependence; R94.31 Abnormal electrocardiogram [ECG] [EKG]; Z79.899 Other long term (current) drug therapy; Z79.52 Long term (current) use of systemic steroids
CPT/HCPCS: 71010; 80053; 81001; 82550; 83605; 84484; 85025; 87040; 87088; 93005

== ENCOUNTER 2016-10-23 08:18 | Inpatient (IN) ==
[2016-10-23 09:44] LABS: HEMATOCRIT 19.7 % (37.0-47.0); HEMOGLOBIN 6.7 g/dL (12.0-16.0); IMM GRAN% 2.2 % (0.0-0.5); LYMPH# 0.64 X1000 (1.2-3.4); MANUAL DIFF NEEDED? YES; MCH 30.9 PG (27-31); MCV 90.8 FL (81-99); MONO# 0.36 X1000 (0.11-0.59); MONO% 3.9 % (1.7-9.3); MPV 10.3 FL (7.4-10.4); NEUT% 86.9 % (42.2-75.2); PLT 185 X1000 (130-400); RBC 2.17 XMIL (4.2-5.4)
[2016-10-23 09:45] LABS: INR 0.99; PROTIME 10.5 Seconds (9.2-11.7)
[2016-10-23 10:07] LABS: AGAP 15; ALBUMIN 0.7 g/dL (3.5-5.0); ALKALINE PHOSPHATASE 97 U/L (32-104); BUN 71 mg/dL (8-22); CALCIUM 7.5 mg/dL (8.8-10.2); CHLORIDE 103 mmol/L (98-107); COSMO 278; GOT 8 U/L (10-30); GPT 10 U/L (10-36); POTASSIUM 5.8 mmol/L (3.5-5.1); SODIUM 129 mmol/L (136-145); TCO2 11 mmol/L (25-35); TOTAL BILIRUBIN < 0.10 mg/dL (0.20-1.00); TOTAL PROTEIN 3.9 g/dL (6.3-8.3)
[2016-10-23 10:24] LABS: URINE CULTURE NEEDED? NO; URINE SOURCE CATH
[2016-10-23 10:39] LABS: BILIRUBIN URINE NEGATIVE (NEGATIVE); BLOOD URINE SMALL (NEGATIVE); COLOR YELLOW; GLUCOSE URINE TRACE mg/dL (NEGATIVE); LEUKOCYTES URINE NEGATIVE (NEGATIVE); NITRITE URINE NEGATIVE (NEGATIVE); PROTEIN URINE 300 mg/dL (NEGATIVE); TURBIDITY URINE HAZY (CLEAR); UROBILINOGEN URINE NORMAL (NORMAL)
[2016-10-23 10:57] LABS: UR EPITHELIAL CELLS >10 /HPF (<10); URINE BACTERIA NEGATIVE /HPF; URINE MICRO REVIEW NEEDED? YES; URINE RBC <10 /HPF (<10); URINE WBC <10 /HPF (<10)
[2016-10-23 11:03] LABS: URINE CASTS GRANULAR PRESENT
[2016-10-23 11:35] LABS: BANDS 16 % (0-1); LYMPHS 4 % (21-51); MONO 2 % (1-9)
--- NOTE | 2016-10-23 12:19 | PROVIDER DOCUMENTATION ---
Addendum entered and electronically signed by Luis Carlos London MD 10/23/16 17: 39: Departure - Departure DIAGNOSIS: Hyponatremia, AMBER (acute kidney injury), Idiopathic nephrotic syndrome, Hyperkalemia Anemia Qualifiers: Anemia type: unspecified type Qualified Code(s): D64.9 - Anemia, unspecified Disposition: ADMITTED INPATIENT 09 Condition: Stable Original Note: HPI-General Adult - General Source: patient, family - History of Present Illness -Gen Adult Nature of Presenting Problems: 26 y/o female presents to the ER with complaint of urinary difficulty. Pt states she has not been able to urinate since last pm. Pt was recently diagnosed with acute nephrotic syndrome. PCP instructed pt to come to ER. Onset/Duration: reports: last night Timing: reports: still present Associated Symptoms: reports: other (urinary retention) <Omayra Webb - Last Filed: 10/23/16 13:15> <Luis Carlos London - Last Filed: 10/23/16 17:36> - General Chief Complaint: Urinary Retention Stated Complaint: Abdominal Pain Time Seen by Provider: 10/23/16 08:29 Allergies/Adverse Reactions: Patient Allergies Allergy/AdvReac Type Severity Reaction Status Date / Time No Known Allergies Allergy Verified 10/23/16 08:33 Home Medications: Home Medication List Medication Instructions Recorded Confirmed Last Taken Type Levothyroxine [Synthroid] 100 microgm PO DAILY 08/22/16 10/23/16 10/19/16 08:00 History Ergocalciferol (Vitamin D2) 50,000 unit PO Q7D #12 capsule 09/09/16 10/23/16 Rx [Vitamin D] Escitalopram [Lexapro] 10 mg PO QPM #60 tablet 09/09/16 10/23/16 10/15/16 Rx Levetiracetam [Keppra] 500 mg PO BID #60 tablet 09/09/16 10/23/16 10/15/16 Rx Multivitamins/Minerals [Centrum 1 each PO DAILY #0 tablet 09/09/16 10/23/16 Rx Tablet] Furosemide [Lasix] 80 mg PO BID #60 tablet 10/08/16 10/23/16 10/15/16 Rx Potassium Chloride E.r. [Klor-Con] 30 meq PO DAILY #40 tablet 10/13/16 10/23/16 10/15/16 Rx Prednisone 60 mg PO DAILY #0 tablet 10/13/16 10/23/16 10/19/16 08:00 Rx Acetaminophen [Tylenol] 650 mg PO Q6H PRN PRN #0 tablet 10/16/16 10/23/16 Unknown Rx Clonidine [Catapres] 0.2 mg PO BID #60 tablet 10/16/16 10/23/16 Unknown Rx Metolazone [Zaroxolyn] 5 mg PO DAILY #30 tablet 10/19/16 10/23/16 Unknown Rx Review of Systems - Adult - REVIEW OF SYSTEMS - ADULT Constitutional: denies: chills, fever Genitourinary: reports: frequency, urinary retention <Omayra Webb - Last Filed: 10/23/16 13:15> Past History - Adult - PAST MEDICAL HISTORY-ADULT Review of Records: reports: Nursing Assessment Review, Medications Reviewed Major Childhood Illnesses: reports: denies history Cardiovascular: reports: denies history Respiratory: reports: denies history Gastrointestinal: reports: denies history Obstetrical/Gynecological: reports: denies history Genitourinary: reports: kidney disease Musculoskeletal: reports: denies history Neurological: reports: denies history Endocrine/Immune: reports: denies history Other Conditions: reports: denies history - PRIOR SURGERIES/PROCEDURES Surgical/Procedure History: reports: reviewed, not pertinent - IMMUNIZATION STATUS Childhood Immunizations: See Nurse Assessment Flu Vaccine: See Nurse Assessment - FAMILY HISTORY Family History: reviewed, not pertinent <Omayra Webb - Last Filed: 10/23/16 13:15> Physical Exam-General - CONSTITUTIONAL General Appearance: alert, no apparent distress <Omayra Webb - Last Filed: 10/23/16 13:15> Progress - EKG 1 Time of EKG reading by physician:: 13:05 EKG Read and Signed by:: Luis Carlos London EKG Interpretation (*Must complete 3 of following elements*): Normal Rate: 74 Rhythm: normal sinus rhythm [place]: normal - CONSULTS/PCP/HOSPITALIST Notification #1 *Consult/PCP/Hospitalist*: Dr. Kemp Time Discussed: 11:48 Reason/Comments: Independent Living Advisor Consult Disposition: other #2 Consult: Dr. Jiménez Time Discussed: 12:10 Reason/Comments: Spoke with hospitalist Consult Disposition: Admit <Omayra Webb - Last Filed: 10/23/16 13:15> - CONSULTS/PCP/HOSPITALIST Notification Consult Disposition: other (Spoke with Dr. Roldan (application packaging specialist ) at 11:48 am made aware of reasin for consult, laboratory values and patient clinical condition. Says that he is very familar with patient, recommeds admission and high rincon lasix treatment. I then spoke with Dr. Alexis (12;10 pm) made aware of reason for admission and says that he will accept admission.) <Luis Carlos London - Last Filed: 10/23/16 17:36> Departure - Departure Time of Disposition Order: 12:15 Certified Medical Emergency: Emergent <Omayra Webb - Last Filed: 10/23/16 13:15> <Luis Carlos London - Last Filed: 10/23/16 17:36> - Departure DIAGNOSIS: Hyponatremia, AMBER (acute kidney injury), Hyperekplexia, Idiopathic nephrotic syndrome Anemia Qualifiers: Anemia type: unspecified type Qualified Code(s): D64.9 - Anemia, unspecified Disposition: ADMITTED INPATIENT 09 Condition: Stable Attestation - Scribe Verification/Attestation Scribe:: Omayra Webb Acting as Scribe for:: Luis Carlos London Scribe documention review:: This chart was documented by a scribe and accurately reflects the service the provider performed and the decisions made by the provider. <Omayra Webb - Last Filed: 10/23/16 13:15> Physician Attestation
[2016-10-23] MEDS ORDERED: NS 500 ML IV ONE (13:40)
[2016-10-23] MEDS: LASIX IV SCH (13:45)
[2016-10-23] MEDS ORDERED: MORPHINE IV PRN (13:53)
[2016-10-23] MEDS ORDERED: LASIX 200 MG in NS 25 ML IV ONE (14:00)
[2016-10-23] MEDS ORDERED: ALBUMIN 25% IV SCH (14:30)
[2016-10-23] MEDS ORDERED: ALBUMIN 25% IV ONE (14:45)
[2016-10-23] MEDS: DUONEB (A & A) INH SCH ×2 (15:00→19:30)
--- NOTE | 2016-10-23 15:01 | CONSULTATION ---
DATE OF CONSULTATION: 10/23/2016 REASON FOR CONSULTATION: Nephrotic syndrome. HISTORY OF PRESENT ILLNESS: Ms. Major is a 26-year-old white female who is well known to me. 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 She has been on prednisone 60 mg since that time. Despite that she has had heavy ongoing proteinuria and severe hypoalbuminemia with severe edema. She also had acute kidney injury in the past which required dialysis but her renal dysfunction has improved. She has not had melena, nausea, vomiting. Just severe pain and difficulty with change of position causing pain. She presented to the emergency room because they were unable to care for her at home. Her initial evaluation found her hemoglobin 6.7, creatinine 2.0, sodium 129, potassium 5.8, bicarbonate 11. She is being admitted to the hospital by Dr. Jiménez. PAST MEDICAL HISTORY: Above. HOME MEDICATIONS: Include prednisone, levothyroxine, multivitamin, escitalopram, ergocalciferol, levetiracetam, furosemide, potassium chloride, clonidine, metolazone. ALLERGIES: None. SOCIAL HISTORY: She lives with her adoptive father. FAMILY HISTORY: Otherwise noncontributory. REVIEW OF SYSTEMS: Otherwise noncontributory. PHYSICAL EXAMINATION: Vital Signs: Blood pressure 108/66, heart rate 77, respirations 14, afebrile. General: She is a young woman in no acute distress. Skin: Pale and dry with dermatosis on the abdomen and multiple stretch oropeza on the extremities. HEENT: Pupils are equal. Conjunctivae are pink. Oropharynx is clear. Neck: Neck veins are not visible. Heart: Regular without gallops. Lungs: Equal. Abdomen: Soft. Bowel sounds present. Extremities: Have 4+ edema. No clubbing or cyanosis. IMPRESSION: 1. Nephrotic syndrome. Continue prednisone. Continue IV Lasix and Zaroxolyn. Will give albumin primarily to assist with diuresis. Consider rebiopsy in the near future. 2. Anemia: This is a new finding. Dr. Jiménez has ordered a unit of packed red blood cells.
[2016-10-23] MEDS: MORPHINE IV PRN (16:22)
--- NOTE | 2016-10-23 16:46 | HISTORY AND PHYSICAL ---
CHIEF COMPLAINT: Severe swelling diffusely and in severe pain. HISTORY OF PRESENT ILLNESS: Patient is a 26-year-old white female, followed in my medical practice and also followed by Dr. Roldan. She has nephrotic syndrome and had a renal biopsy done after acute ATN 2 to 3 months ago. The renal biopsy revealed minimal change disease and she has suffered from nephrotic syndrome, been in and out of the hospital quite frequently here recently. She was on dialysis earlier and her creatinine had improved to 1.4 recently but is back up to 2.0 now. She has had diffuse anasarca with stretch oropeza on her legs and abdomen and petechial rash along the upper abdomen from such a large amount of edema on her face and body in general and especially in her abdomen and legs. The patient has had excessive pain when she tries to move about at all. In fact, she is cared for vigorously by her adoptive father. This is her sole feather drying machine operator. He has done all he can at home. He is in poor health, not able to lift her like he has been doing. Family is just worn out from trying to manage the pain and daily living situation. There is no income as the patient cannot work and the adoptive father has a job but has been unable to work due to having to care for her constantly. Patient's pain has worsened despite trial of Ultram. There has been no history of fever. Urine output has diminished slightly. MEDICATIONS: Prior to admission are Synthroid 100 mcg p.o. daily, multivitamin 1 p.o. daily, Lexapro 10 mg p.o. daily, vitamin D2 50,000 units p.o. 1 time per week, Keppra 500 mg p.o. b.i.d., Lasix 80 mg p.o. b.i.d., KCl 20 mEq 1-1/2 p.o. daily, prednisone 60 mg p.o. daily, Catapres 0.2 mg p.o. b.i.d., Tylenol p.r.n., she has been taking that fairly regularly, Zaroxolyn 5 mg p.o. q.a.m., Gaviscon 30 mL p.o. b.i.d., MiraLAX 17 g in 8 ounces of water daily. ALLERGIES: NKDA. PAST MEDICAL HISTORY: 1. Nephrotic syndrome diagnosed about 3 months ago with minimal change disease noted by renal biopsy. 2. History of seizure x1. 3. Hypertension. 4. Hypothyroidism. 5. Dyslipidemia. PAST SURGICAL HISTORY: History of dialysis catheter. FAMILY HISTORY: Noncontributory. SOCIAL HISTORY: The patient had a boyfriend but he has he has left the home. She lives with her adoptive father. No alcohol in a year. Has been a cigarette smoker but none recently. REVIEW OF SYSTEMS: As above. PHYSICAL EXAMINATION: VITAL SIGNS: Temperature 97.1 degrees, pulse 79, respirations 16, blood pressure 111/60, weight 115, O2 saturation on room air 97%. GENERAL: Young white female, ill appearing. Pronounced edema of the cheeks. SKIN: Petechial rash of the upper abdomen and some stretch oropeza, striae along the lower legs and abdomen. HEENT: ROYCE. EOMI. Sclerae anicteric. OP no redness. Tongue in the midline. NECK: No LA, TMG, JVD, bruits. CARDIOVASCULAR: RRR without appreciable murmur. LUNGS: Minimally decreased breath sounds at the lung bases otherwise CTA. BACK: Tenderness to palpation over the back diffusely with some edema there. ABDOMEN: Very protuberant. Pronounced ascites and anasarca. Active bowel sounds. Diffuse tenderness. BREASTS: Deferred. PELVIC: Deferred. RECTAL: Deferred. EXTREMITIES: 3+ lower extremity edema. NEUROLOGIC: Cranial nerves 2 through 12 intact. NF. LABS: White count 9.19, hemoglobin 6.7, it has been declining since about 10/15/2016, platelets 185,000. PT 10.5, INR 0.99. Sodium 129, potassium 5.8, chloride 103, CO2 11, BUN 71, creatinine 2.0, calcium 7.5, total bilirubin less than 0.1, AST 8, ALT 10, alkaline phosphatase 97, total protein 3.9. Albumin has dropped from a max of 2.1 down to 0.7. Urinalysis, 300 of protein, otherwise small blood. ASSESSMENT: 1. Nephrotic syndrome with anasarca so far unresponsive to prednisone. 2. History of renal insufficiency requiring dialysis recently associated with #1. 3. Pronounced anemia worsened with no history of melena or hematochezia, although patient on high- dose prednisone. 4. Hypothyroidism. 5. History of hypertension. 6. Hyperkalemia. 7. Extremely poor social situation. PLAN: At this time admit the patient to the hospital. Give her high-dose Lasix. Hold her potassium. Give her nebulizer treatments. Continue prednisone as per Dr. Roldan with consideration to be given to a repeat renal biopsy in the near future. Dr. Roldan is going to be giving her albumin. I will cover with IV Protonix and check Hemoccult testing and transfuse her 1 unit of PRBCs due to hemoglobin down to 6.7.
[2016-10-23] MEDS ORDERED: NS 500 ML ONE (17:00)
--- NOTE | 2016-10-23 20:05 | OPERATIVE NOTE ---
PROCEDURE DATE: 10/23/2016 PREOPERATIVE DIAGNOSES: 1. Anasarca. 2. Anemia requiring blood transfusion. 3. Need for intravenous access. POSTOPERATIVE DIAGNOSES: 1. Anasarca. 2. Anemia requiring blood transfusion. 3. Need for intravenous access. PRINCIPAL PROCEDURE: Ultrasound-guided right internal jugular triple-lumen central venous line. SURGEON: Belen Hernandez MD. ANESTHESIA: Local. ESTIMATED BLOOD LOSS: 20 mL. DRAINS: None. INDICATIONS: Anna Major is a 26-year-old white female who I have met in the past. I actually had to place a PermCath in her 4-6 weeks ago for acute renal failure. She is not on dialysis now but she is readmitted with fluid overload and generalized edema. She has significant anemia and poor peripheral veins. We were asked to place a venous access. DESCRIPTION OF PROCEDURE: The patient in her room 465 was placed supine in her bed. Her head was turned to the left and her right neck was prepped and draped in a sterile field. I used ultrasound to identify the internal jugular vein between the 2 heads of the right sternocleidomastoid muscle. I used local anesthetic. I placed an 18-gauge needle under ultrasound guidance into the right internal jugular vein and through the needle we placed a guidewire. The needle was removed. We placed a dilator over the guidewire and then an antibiotic- coated triple-lumen central venous line was placed over the guidewire into the superior vena cava. I secured the catheter to the skin with two 3-0 silk stitches followed by dressing. All 3 ports were flushed with saline and were functioning well. She tolerated the procedure well. We will get a portable chest x-ray for position.
[2016-10-23] MEDS: KEPPRA PO SCH (21:32)
[2016-10-23] MEDS: PROTONIX IV SCH (21:32)
[2016-10-23] MEDS: LEXAPRO PO SCH (21:32)
[2016-10-24] MEDS: MORPHINE IV PRN ×3 (01:51→22:49)
[2016-10-24] MEDS: LASIX 200 MG in NS 25 ML IV SCH ×3 (02:51→23:14)
[2016-10-24] MEDS ORDERED: BLISTEX MEDICATED BERRY LIP BALM TOP PRN (04:22)
[2016-10-24] MEDS: DUONEB (A & A) INH SCH ×6 (04:32→23:39)
[2016-10-24] MEDS: SYNTHROID PO SCH (06:06)
[2016-10-24 06:23] LABS: EOS# 0.04 X1000 (0.0-0.7); EOS% 0.4 % (0.0-10.0); HEMATOCRIT 21.6 % (37.0-47.0); HEMOGLOBIN 7.4 g/dL (12.0-16.0); IMM GRAN# 0.64 X1000 (0.0-0.04); IMM GRAN% 5.8 % (0.0-0.5); LYMPH# 1.63 X1000 (1.2-3.4); LYMPH% 14.8 % (20.5-51.1); MANUAL DIFF NEEDED? YES; MCH 30.3 PG (27-31); MCHC 34.3 g/dL (33-37); MCV 88.5 FL (81-99); MONO# 0.34 X1000 (0.11-0.59); MONO% 3.1 % (1.7-9.3); MPV 10.3 FL (7.4-10.4); NEUT% 75.9 % (42.2-75.2); PLT 170 X1000 (130-400); RBC 2.44 XMIL (4.2-5.4)
[2016-10-24 06:28] LABS: BANDS 8 % (0-1); LYMPHS 10 % (21-51); MONO 2 % (1-9)
[2016-10-24 06:56] LABS: CALCIUM 7.2 mg/dL (8.8-10.2); POTASSIUM 5.1 mmol/L (3.5-5.1)
--- NOTE | 2016-10-24 07:21 | Diag Imaging Result Document ---
PROCEDURE NAME: CHEST-PORTABLE - 10/23/2016 PORTABLE CHEST: COMPARISON: Compared to 10/19/2016. FINDINGS: A right jugular line has been placed since the prior exam. The tip overlies the right atrium. No pneumothorax. There is a moderate sized right-sided effusion and there are infiltrates and atelectasis in the mid and lower right lung. No left effusion identified. IMPRESSION: No postprocedural pneumothorax. [facility]
[2016-10-24] MEDS: KEPPRA PO SCH ×2 (10:55→22:49)
[2016-10-24] MEDS: CENTRUM TABLET PO SCH (10:55)
[2016-10-24] MEDS: PREDNISONE PO SCH (10:55)
[2016-10-24] MEDS: ZAROXOLYN PO SCH (10:59)
[2016-10-24] MEDS: VITAMIN D PO SCH (11:00)
--- NOTE | 2016-10-24 11:05 | PROGRESS NOTE ---
DATE: 10/24/2016 SUBJECTIVE: Patient remains in pain. She complains of mouth soreness. Adoptive father in attendance and attended her care. OBJECTIVE: Afebrile, pulse 72-105, blood pressure 126/80 and O2 saturation on 2 L 90-95%.CV: RRR without murmur. Lungs: Some crackles in the mid to lower right lung field. Fairly clear on the left. Abdomen: Protuberant. Active bowel sounds. There may be mild improvement in ascites. Extremities: Two plus lower extremity edema slightly improved. Neurologic: Cranial nerves are intact. She does have fairly prominent redness. Erythema on the lips and oropharynx with some mild white patches on the tongue. White blood cell count 10.9, hemoglobin 7.4 after 1 unit PRBC transfused platelets 170,000. Sedimentation rate greater than 150. Sodium 133, potassium 5.1, chloride 105, CO2 10, BUN 70, creatinine 1.8 and glucose 75. Chest x-ray from yesterday does show possible infiltrate or atelectasis mid and right lower lung. No sign of pneumothorax. This was a chest x-ray performed after right IJ CVL placed. ASSESSMENT: 1. Nephrotic syndrome with anasarca and minimal change disease per biopsy x1. 2. Renal insufficiency associated with #1. 3. Pronounced anemia slightly improved after 1 unit of PRBC's transfused. No sign of active GI bleeding. 4. Right lung infiltrate or atelectasis. 5. Hypothyroidism. 6. Hypertension. 7. Hyperkalemia resolved. 8. Poor social situation. 9. Thrush. PLAN: We will start nystatin. Continue high-dose Lasix challenge. Continue prednisone 60 mg daily. Add Culturelle. Mouth care will be pursued per nursing. Continue to turn the patient q.2 hours. Continue IV Protonix. Check Hemoccult testing with the patient's stools. Monitoring kidney function and hemoglobin closely. Continue albumin per Dr. Yuli coello Consideration for repeat renal biopsy this next week.
[2016-10-24] MEDS: ZOFRAN IV PRN (11:33)
[2016-10-24] MEDS: MYCOSTATIN SUSP PO SCH ×3 (13:30→23:17)
[2016-10-24] MEDS: ZOSYN 2.25 GM/NS 50 ML IV SCH ×2 (13:54→22:49)
[2016-10-24] MEDS: ALBUMIN 25% IV SCH (16:53)
[2016-10-24] MEDS: PROTONIX IV SCH (18:16)
[2016-10-24] MEDS: SODIUM CHLORIDE 0.9% INJ SCH (18:17)
[2016-10-24] MEDS: CULTURELLE PO SCH (22:49)
[2016-10-24] MEDS: LEXAPRO PO SCH (22:49)
--- NOTE | 2016-10-25 02:54 | PROGRESS NOTE ---
DATE: 10/24/2016 ADDENDUM REPORT PLAN: We will add Zosyn for potential right pneumonia.
[2016-10-25] MEDS: DUONEB (A & A) INH SCH ×6 (03:13→23:07)
[2016-10-25] MEDS: MORPHINE IV PRN (05:03)
--- NOTE | 2016-10-25 05:42 | EKG Report ---
Test Performed on : 10/24/2016 04:17:21 AM Test Reason : CHEST PAIN Blood Pressure : / mmHG Vent. Rate : 101 BPM Atrial Rate : 101 BPM P-R Int : 130 ms QRS Dur : 080 ms QT Int : 326 ms P-R-T Axes : 117 044 078 degrees QTc Int : 422 ms Sinus tachycardia. Low voltage QRS Borderline ECG When compared with ECG of 19-OCT-2016 09:45, premature ventricular complexes. are no longer present Confirmed by Montse CAMERON, Yan Moscoso ([id number]) on 10/25/2016 4:25:28 PM
[2016-10-25] MEDS: ZOSYN 2.25 GM/NS 50 ML IV SCH ×3 (06:12→22:27)
[2016-10-25] MEDS: SYNTHROID PO SCH (06:12)
[2016-10-25 07:00] LABS: CALCIUM 7.5 mg/dL (8.8-10.2); POTASSIUM 4.1 mmol/L (3.5-5.1)
[2016-10-25 07:05] LABS: EOS# 0.01 X1000 (0.0-0.7); EOS% 0.1 % (0.0-10.0); HEMATOCRIT 22.6 % (37.0-47.0); HEMOGLOBIN 7.4 g/dL (12.0-16.0); IMM GRAN# 0.17 X1000 (0.0-0.04); IMM GRAN% 1.7 % (0.0-0.5); LYMPH# 0.31 X1000 (1.2-3.4); LYMPH% 3.1 % (20.5-51.1); MANUAL DIFF NEEDED? YES; MCH 29.4 PG (27-31); MCHC 32.7 g/dL (33-37); MCV 89.7 FL (81-99); MONO# 0.35 X1000 (0.11-0.59); MONO% 3.5 % (1.7-9.3); MPV 10.1 FL (7.4-10.4); NEUT% 91.6 % (42.2-75.2); PLT 161 X1000 (130-400); RBC 2.52 XMIL (4.2-5.4)
[2016-10-25 07:38] LABS: BANDS 2 % (0-1); LYMPHS 6 % (21-51)
[2016-10-25] MEDS: LASIX 200 MG in NS 25 ML IV SCH ×3 (08:17→23:20)
[2016-10-25] MEDS: KEPPRA PO SCH ×2 (08:33→22:27)
--- NOTE | 2016-10-25 08:33 | PROGRESS NOTE ---
DATE: 10/25/2016 SUBJECTIVE: Ms. Major is resting quietly in bed. She states that she is cold today. She denies any pain. No increased work of breathing. States that she is getting tired of coming to the hospital. OBJECTIVE: Vital Signs: Her most recent vital signs, her temperature is 97.6 degrees, blood pressure 118/80, heart rate 92, respirations 16. She remains on 2 L nasal cannula. Last recorded saturation is 98%. She has had 0 recorded in. She has had 3800 out per Conde catheter. Laboratory Data: Her most recent labs this a.m., sodium 137, potassium 4.1, chloride is 107, CO2 13, BUN 66, creatinine 1.9, glucose 124, her anion gap is 17, her calcium is 7.5. White count 9.99, hemoglobin 7.4, hematocrit 22.6, with a platelet count of 161,000. She has a low C3 complement of 98 and a normal complement C4. Physical Examination: General: This is a 26-year-old, white female. She is currently resting in bed. She is in mild distress just secondary to lying in the hospital bed. No acute distress noted. Skin: Warm and dry. HEENT: Normocephalic, atraumatic. Conjunctivae are pale. She has ROYCE. Mucous membranes are dry. Neck: Supple. Trachea midline. Negative JVD. Cardiovascular: Regular rate and rhythm. She is without murmur or gallop. Lungs: She has faint crackles to the right lower base. Remains on O2. Equal excursion. Abdomen: Distended, round , soft, nontender. Positive bowel sounds. Genitourinary: Not inspected. Conde catheter remains in place. Extremities: Continue with tight edema including facial edema with anasarca. She appears to have been responding adequate to diuretic therapy. ASSESSMENT AND PLAN: 1. Nephrotic syndrome. Patient continues on prednisone. She continues on intravenous Lasix and Zaroxolyn. She is being given albumin to assist with diuresis. We will consider possible re- biopsy of her kidneys possibly by Tuesday. 2. Electrolytes. These are stable. 3. Acid-base balance. This remains low secondary to #1. We will not be giving sodium bicarbonate secondary to fluid volume overload. We will continue to monitor. 4. Anemia. This remains low but stable. We will continue to monitor. I would to thank you for allowing us to follow with this patient. Seen, data reviewed, discussed with Richard Mckeon on 10/25/16. I agree with the above assessment and plan of care. rg Dictated by NICHOLAS Rincon for Arnav Roldan MD [facility]
[2016-10-25] MEDS: CULTURELLE PO SCH ×2 (08:34→22:27)
[2016-10-25] MEDS: PREDNISONE PO SCH (08:34)
[2016-10-25] MEDS: ZAROXOLYN PO SCH (08:34)
[2016-10-25] MEDS: MYCOSTATIN SUSP PO SCH ×4 (08:34→22:36)
[2016-10-25] MEDS: CENTRUM TABLET PO SCH (08:34)
--- NOTE | 2016-10-25 09:27 | EKG Report ---
Test Performed on : 10/23/2016 1:05:57 PM Test Reason : Cancelled in Error Blood Pressure : / mmHG Vent. Rate : 074 BPM Atrial Rate : 075 BPM P-R Int : 124 ms QRS Dur : 068 ms QT Int : 394 ms P-R-T Axes : 006 034 044 degrees QTc Int : 437 ms Normal sinus rhythm. Low voltage QRS Borderline ECG No previous ECGs available Unconfirmed Result
[2016-10-25 10:34] LABS: HEPATITIS PROFILE ACUTE SEE COMMENTS (())
--- NOTE | 2016-10-25 15:24 | PROGRESS NOTE ---
DATE: 10/25/2016 SUBJECTIVE: Patient overall doing a little better. She has had some improvement in the swelling in her face and arms and abdomen. Not particularly improved in the legs, however. OBJECTIVE: Vital signs: Afebrile. Pulse 95, respirations 14, blood pressure 125/85, O2 saturation on 2 L 99 to 100%. CV: RRR. Lungs: Some crackles in the right lung field primarily. Maybe minimal crackles left. Skin: Facial swelling has been reduced by about a half and some improvement in swelling in her arms and especially in abdomen, but still some prominent ascites noted. There is 2 to 3+ lower extremity edema. Neurologic: Cranial nerves intact without focal deficits. LABORATORY: White count 9.99, hemoglobin 7.4, platelets 161,000. Sodium 137, potassium 4.1, chloride 107, CO2 13, BUN 66, creatinine 1.9, blood sugar 124. ASSESSMENT: 1. Right pneumonia. 2. Nephrotic syndrome with anasarca and minimal change disease. 3. Renal insufficiency. 4. Anemia. 5. Hypothyroidism. 6. Hypertension. 7. Thrush. 8. Poor social situation. PLAN: Continue IV antibiotics in the form of Zosyn. Continue to monitor white count. She is on the prednisone still. She is now on Zosyn for the antibiotic. Continue nebulizer treatments. Will add incentive spirometry. We will ask physical therapy to assist and try to help ambulate the patient and strengthen the patient. Continue the prednisone and high-dose Lasix and Zaroxolyn. Continue nystatin suspension and Culturelle.
[2016-10-25] MEDS: SODIUM CHLORIDE 0.9% INJ SCH (16:34)
[2016-10-25] MEDS: PROTONIX IV SCH (16:34)
[2016-10-25] MEDS: ALBUMIN 25% IV SCH (16:35)
[2016-10-25] MEDS: LEXAPRO PO SCH (22:27)
[2016-10-26] MEDS: MORPHINE IV PRN ×2 (00:46→16:38)
[2016-10-26] MEDS: DUONEB (A & A) INH SCH ×6 (03:38→22:50)
[2016-10-26] MEDS: ZOSYN 2.25 GM/NS 50 ML IV SCH ×4 (05:06→20:46)
[2016-10-26 06:27] LABS: HEMATOCRIT 20.9 % (37.0-47.0); IMM GRAN# 0.52 X1000 (0.0-0.04); IMM GRAN% 5.2 % (0.0-0.5); LYMPH# 0.47 X1000 (1.2-3.4); LYMPH% 4.7 % (20.5-51.1); MANUAL DIFF NEEDED? YES; MCH 29.8 PG (27-31); MCHC 33.5 g/dL (33-37); MCV 88.9 FL (81-99); MONO# 0.36 X1000 (0.11-0.59); MONO% 3.6 % (1.7-9.3); NEUT% 86.5 % (42.2-75.2); PLT 145 X1000 (130-400); RBC 2.35 XMIL (4.2-5.4)
[2016-10-26] MEDS: SYNTHROID PO SCH (06:32)
[2016-10-26 06:33] LABS: LYMPHS 4 % (21-51); MONO 2 % (1-9)
[2016-10-26] MEDS: LASIX 200 MG in NS 25 ML IV SCH ×2 (06:38→15:44)
[2016-10-26 06:54] LABS: CALCIUM 7.4 mg/dL (8.8-10.2); POTASSIUM 2.9 mmol/L (3.5-5.1)
[2016-10-26] MEDS ORDERED: MILK OF MAGNESIA PO ONE (08:31)
[2016-10-26] MEDS: MYCOSTATIN SUSP PO SCH ×5 (09:18→20:47)
[2016-10-26] MEDS: CENTRUM TABLET PO SCH (09:18)
[2016-10-26] MEDS: ZAROXOLYN PO SCH (09:19)
[2016-10-26] MEDS: KLOR-CON PO SCH ×3 (09:19→20:48)
[2016-10-26] MEDS: KEPPRA PO SCH ×3 (09:19→20:47)
[2016-10-26] MEDS: CULTURELLE PO SCH ×3 (09:19→20:47)
[2016-10-26] MEDS: PREDNISONE PO SCH (09:19)
[2016-10-26] MEDS: VITAMIN D PO SCH (09:37)
--- NOTE | 2016-10-26 09:45 | PROGRESS NOTE ---
DATE: 10/26/2016 SUBJECTIVE: The patient is doing better in regard to edema but is not active at all and not eating well. She does think she can try to eat some regular food. OBJECTIVE: Afebrile. Pulse 88, respirations 16, blood pressure 141/94, O2 saturation on room air 100%. I and O: 60 In. 2550 Out. No BMs in 3-4 days. CV: RRR. Lungs: Mild rhonchi bilaterally. Abdomen: Much less edema over the abdomen. Lower extremities: 2+ edema, slightly improving. White count is 9.9, hemoglobin 7, platelets 145,000. Sodium 140, potassium 2.9. Chloride 107, CO2 17. BUN 62, creatinine 1.8, glucose 113. Calcium 7.4. Blood cultures x2 negative. ASSESSMENT: 1. Nephrotic syndrome, improving. 2. Right pneumonia. 3. Anemia. Rule out multifactorial such as related to renal insufficiency and gastrointestinal source. 4. Renal insufficiency. 5. Hypothyroidism. 6. Hypokalemia. 7. Hypertension. 8. Thrush. 9. Poor social situation. PLAN: Continue IV Zosyn and increase activity level; I urged the patient in this. Continue prednisone per Dr. Roldan, continue nebulizer treatments, incentive spirometry, physical therapy, advance her diet to a renal diet, continue high-dose Lasix, Zaroxolyn, replete potassium, continue nystatin and Culturelle.
[2016-10-26] MEDS: PROTONIX IV SCH ×3 (10:30→20:47)
--- NOTE | 2016-10-26 11:17 | PROGRESS NOTE ---
DATE: 10/26/2016 TIME SEEN: 0815 hours. SUBJECTIVE: Ms. Major is resting quietly in bed. She states that she is cold. She denies chest pain. No increased work of breathing. She does state that is difficult to move her legs secondary to swelling. OBJECTIVE: Her most recent vital signs: Temperature 98.1 degrees, blood pressure 131/81, heart rate 86, respirations 18. She is on room air. Last recorded saturation 100. She has had 60 in; she has had 2550 out per Conde catheter. LABS: Sodium 140, potassium 2.9, chloride 107, CO2 17, BUN 62, creatinine 1.8, glucose 113, anion gap 16, calcium 7.4. White count 9.94, hemoglobin 7, hematocrit 20.9 with a platelet count of 145,000. PHYSICAL EXAMINATION: General: This is a 26-year-old, white female. She is resting quietly in bed. She is in no acute distress. Skin: Warm and dry. HEENT: Normocephalic , atraumatic. Conjunctivae pale. She has ROYCE. Mucous membranes are dry. Neck: Supple. Trachea midline. Negative JVD. Cardiovascular: Regular rate and rhythm. She is without murmur or gallop. Lungs: Faint crackles to the bibasilar posterior bases, otherwise on oxygen, equal excursion. Clear anterior. Abdomen: Distended, round, soft, nontender. Positive bowel sounds. Genitourinary: Not inspected. Conde catheter is in place with adequate urine out with good response to Lasix. Extremities: Continue with tight edema, including facial edema with anasarca. She appears to have been responding adequately to her diuretic therapy. Integumentary: Patient continues with petechiae noted to her abdomen and trunk. This may be related to increased swelling. No rashes or lesions. Neurological: Alert and oriented x3. ASSESSMENT AND PLAN: 1. Nephrotic syndrome. Patient's creatinine remains at her baseline. She continues on intravenous Lasix and Zaroxolyn. She continues to be given albumin with assist freer diuresis. Otherwise, no indications for any changes. We will continue to keep an accurate intake and output. 2. Electrolytes. She currently has mild hypokalemia. We will order supplement replacement of 40 mEq twice (this morning and this afternoon), and re-evaluate her labs in the morning. 3. Acid-base balance. She continues in metabolic acidosis. She has not had any sodium given secondary to increased fluid volume overload. Again, we will continue to monitor. 4. Anemia. Patient's hemoglobin has dropped. She has received a unit of packed red blood cells upon admission. We have discussed this with Dr. Jiménez, and he is to defer to Dr. Roldan. We will make note. 5. Anasarca. Again this is secondary to her nephrotic syndrome. She continues to respond to her diuretic therapy. Physical therapy has been ordered to assist the patient to sit up and get her feet on the ground and to increase the movement. I would to thank you for allowing us to follow with this patient. Seen, data reviewed, discussed with Richard Mckeon on 10/26/16. I agree with the above assessment and plan of care. rg Dictated by NICHOLAS Rincon for Arnav Roldan MD [facility]
[2016-10-26] MEDS ORDERED: NS 500 ML IV ONE (16:27)
[2016-10-26] MEDS: SODIUM CHLORIDE 0.9% INJ SCH (19:45)
[2016-10-26] MEDS: LEXAPRO PO SCH ×2 (19:46→20:47)
[2016-10-27] MEDS: LASIX 200 MG in NS 25 ML IV SCH ×3 (00:36→17:11)
[2016-10-27] MEDS: DUONEB (A & A) INH SCH ×6 (02:53→23:15)
[2016-10-27] MEDS: ZOSYN 2.25 GM/NS 50 ML IV SCH ×3 (05:18→20:28)
[2016-10-27] MEDS: SYNTHROID PO SCH (06:48)
[2016-10-27 07:48] LABS: BASO% 0.1 % (0.0-0.8); EOS# 0.06 X1000 (0.0-0.7); EOS% 0.6 % (0.0-10.0); HEMATOCRIT 27.9 % (37.0-47.0); HEMOGLOBIN 9.7 g/dL (12.0-16.0); IMM GRAN% 7.7 % (0.0-0.5); LYMPH# 1.28 X1000 (1.2-3.4); LYMPH% 12.4 % (20.5-51.1); MANUAL DIFF NEEDED? NO; MCH 29.8 PG (27-31); MCHC 34.8 g/dL (33-37); MCV 85.6 FL (81-99); MONO% 3.9 % (1.7-9.3); MPV 10.2 FL (7.4-10.4); NEUT% 75.3 % (42.2-75.2); PLT 162 X1000 (130-400); RBC 3.26 XMIL (4.2-5.4)
--- NOTE | 2016-10-27 08:24 | PROGRESS NOTE ---
DATE: 10/27/2016 SUBJECTIVE: Patient showing some improvement. Is scheduled for repeat renal biopsy today per Dr. Roldan. OBJECTIVE: Vital Signs: Afebrile pulse 93, respirations 20, blood pressure 133/82, I and O's 1325 in, 3500 out. Eating a little more of her meals. Cardiovascular: RRR without murmur. Lungs: Crackles mild on the right. Diminished breath sounds at the bases. Abdomen: Still some ascites, [id number] but improved from admission. Extremities: 2+ lower extremity edema. LABS: Show white count of 10.3, hemoglobin 9.7, up from 7 after 1 unit of PRBCs transfused last evening, per Dr. Roldan. That is 2 total units transfused during the hospitalization. Platelets 162, neutrophils 75%, lymphocytes 12.4. ASSESSMENT: 1. Nephrotic syndrome. 2. Hypokalemia. 3. Anemia. 4. Anasarca, overall improved. 5. Possible pneumonia. PLAN: Patient for repeat renal biopsy after the first one showed minimal change disease. Seems to be improving slightly. She remains on prednisone. She is on Lasix, Zaroxolyn, albumin. Would continue Zosyn for the latter. Continue physical therapy. I spoke with the patient in detail that she must get up out of bed and cooperate in mobility to do well. Try to improve her nutrition. Nutrition is following. Repeat potassium, CBC in the morning.
[2016-10-27 08:28] LABS: CALCIUM 6.8 mg/dL (8.8-10.2); POTASSIUM 3.5 mmol/L (3.5-5.1)
[2016-10-27] MEDS: MYCOSTATIN SUSP PO SCH ×4 (09:00→20:29)
[2016-10-27] MEDS: SODIUM CHLORIDE 0.9% INJ SCH ×2 (09:33→20:28)
[2016-10-27] MEDS: PROTONIX IV SCH ×2 (09:33→20:28)
[2016-10-27] MEDS: CENTRUM TABLET PO SCH (09:34)
[2016-10-27] MEDS: PREDNISONE PO SCH (09:34)
[2016-10-27] MEDS: CULTURELLE PO SCH ×2 (09:35→20:28)
[2016-10-27] MEDS: KEPPRA PO SCH ×2 (09:35→20:29)
[2016-10-27] MEDS: ZAROXOLYN PO SCH (09:35)
--- NOTE | 2016-10-27 12:32 | PROGRESS NOTE ---
DATE: 10/27/2016 TIME SEEN: 0750. SUBJECTIVE: Ms. Major states that she is cold all of the time. She refuses to get up out of bed and be bathed in the last couple of days. She does deny any chest pain. No increased work of breathing. States that she aches due to all of her swelling. OBJECTIVE: Vital signs: Her most recent vital signs, temperature 98.1 degrees , blood pressure 121/85, heart rate 93, respirations are 18. She is on 2 L nasal cannula. Last recorded saturation 96%. She has had 1325 in and 3500 out. She is -9.9 L in the last 3 days. Labs: Her most recent labs, sodium 140, potassium 3.5, chloride 108, CO2 18, BUN 58, creatinine 1.6, glucose is 103. Her anion gap is 14. Her calcium is 6.8. We will check an albumin level this a.m. White count 10.33, hemoglobin 9.7, hematocrit 27.9, with a platelet count of 162 ,000. Patient was transfused 1 unit of packed red blood cells yesterday. PHYSICAL EXAMINATION: General: This is a 26-year-old white female. She is resting quietly in bed. She is in no acute distress. Skin: Warm and dry. HEENT: Normocephalic , atraumatic. Conjunctivae pale. She has ROYCE. Mucous membranes are dry. Neck: Supple. Trachea midline. No JVD. Cardiovascular: Regular rate and rhythm. She has a soft murmur this a.m. Lungs: Clear to auscultation bilateral anterior. Otherwise faint crackles to posterior bases. Equal excursion. Abdomen: Soft, round, nontender. Positive bowel sounds. Genitourinary: Not inspected. Conde catheter remains in place. Extremities: Continue with tight 4+ edema. Facial edema is present with total anasarca. Integumentary: The patient has petechiae with some bruising noted to her abdomen and trunk and to her upper extremities. No rashes or lesions evident. Neurological: Alert and oriented x3. ASSESSMENT AND PLAN: 1. Nephrotic syndrome. Patient's creatinine remains at her baseline. She continues on IV Lasix with Zaroxolyn to assist with her fluid volume overload. No indications for changes. 2. Electrolytes. Patient has hyponatremia with hypokalemia corrected. No indications for any changes at this time. We will continue to monitor her I's and O's, with placement of a fluid restriction. 3. Anemia. This has actually improved. 4. Anasarca, again, with nephrotic syndrome. We will continue to monitor her p.o. intake and continue on her diuresis therapy. I would like to thank you for allowing us to follow with this patient. Seen, data reviewed, discussed with Richard Mckeon on 10/27/16. I agree with the above assessment and plan of care. rg Dictated by NICHOLAS Rincon for Arnav R[facility]an [facility]
[2016-10-27] MEDS: LEXAPRO PO SCH (20:28)
[2016-10-28] MEDS: LASIX 200 MG in NS 25 ML IV SCH ×3 (00:52→19:05)
[2016-10-28] MEDS: DUONEB (A & A) INH SCH ×6 (03:18→23:15)
[2016-10-28] MEDS: ZOSYN 2.25 GM/NS 50 ML IV SCH ×3 (05:25→20:35)
[2016-10-28] MEDS: SYNTHROID PO SCH (06:04)
[2016-10-28 06:34] LABS: BASO% 0.2 % (0.0-0.8); EOS# 0.03 X1000 (0.0-0.7); EOS% 0.3 % (0.0-10.0); HEMATOCRIT 33.2 % (37.0-47.0); HEMOGLOBIN 11.5 g/dL (12.0-16.0); IMM GRAN# 0.91 X1000 (0.0-0.04); IMM GRAN% 8.2 % (0.0-0.5); LYMPH# 0.81 X1000 (1.2-3.4); LYMPH% 7.3 % (20.5-51.1); MCH 29.3 PG (27-31); MCHC 34.6 g/dL (33-37); MCV 84.7 FL (81-99); MONO# 0.31 X1000 (0.11-0.59); MONO% 2.8 % (1.7-9.3); MPV 10.3 FL (7.4-10.4); NEUT% 81.2 % (42.2-75.2); PLT 181 X1000 (130-400); RBC 3.92 XMIL (4.2-5.4)
[2016-10-28 06:49] LABS: CALCIUM 7.3 mg/dL (8.8-10.2); POTASSIUM 2.8 mmol/L (3.5-5.1)
[2016-10-28 07:24] LABS: MANUAL DIFF NEEDED? NO
[2016-10-28] MEDS: KEPPRA PO SCH ×2 (08:56→20:34)
[2016-10-28] MEDS: ZAROXOLYN PO SCH (08:56)
[2016-10-28] MEDS: PROTONIX IV SCH ×2 (08:58→20:34)
[2016-10-28] MEDS: SODIUM CHLORIDE 0.9% INJ SCH ×2 (08:58→20:34)
[2016-10-28 10:33] LABS: INR 1.01; PROTIME 10.3 Seconds (9.2-11.7); PTT 43.2 Seconds (22.0-36.0)
[2016-10-28] MEDS: CENTRUM TABLET PO SCH (13:55)
[2016-10-28] MEDS: CULTURELLE PO SCH ×2 (13:55→20:34)
[2016-10-28] MEDS: MYCOSTATIN SUSP PO SCH ×4 (13:55→23:46)
[2016-10-28] MEDS: PREDNISONE PO SCH (13:55)
--- NOTE | 2016-10-28 14:19 | Diag Imaging Result Document ---
PROCEDURE NAME: US RENAL BIOPSY W S/I - 10/28/2016 ULTRASOUND-GUIDED RENAL BIOPSY: COMPARISON: 10/16/2016. TECHNIQUE: The risks and benefits of the procedure were discussed with the patient. All questions were answered. Written and verbal informed consent was obtained. The right kidney was chosen. Overlying skin was prepped and draped in sterile fashion. Anesthesia was achieved with injection of 10 mL of 1% lidocaine. Using ultrasound guidance, the 18-gauge biopsy needle was used and about 12 biopsy specimens were obtained. The needle was withdrawn intact. The patient reported no symptoms from the procedure. IMPRESSION: Successful and uncomplicated ultrasound-guided renal biopsy.
[2016-10-28] MEDS: KLOR-CON PO SCH ×2 (14:28→20:34)
--- NOTE | 2016-10-28 15:12 | PROGRESS NOTE ---
DATE: 10/28/2016 TIME SEEN: 824 SUBJECTIVE: Ms. Major is resting quietly in bed. She is upset that she is to have her renal biopsy today, though she admits that she knows that this has been expected. She denies any chest pain. No increased work of breathing. OBJECTIVE: Her most recent vital signs were temperature 97.5 degrees, blood pressure 138/101, heart rate 88, respirations 16. She is currently on 2L nasal cannula. Last recorded saturation 95%. She has had 779 in, 3475 out. LABORATORIES: Sodium 139, potassium 2.8, chloride 106, CO2 of 20, BUN 53, creatinine 1.5, glucose 95. Previous hemoglobin of 11.5 prior to renal biopsy. PT 10.3, INR 1.01, PTT 43.2. PHYSICAL EXAMINATION: General: This is a 26-year-old white female. She is resting quietly in bed. She is in no acute distress. Skin: Warm and dry. HEENT: Normocephalic , atraumatic. Conjunctivae pale. She has ROYCE. Mucous membranes dry. Neck: Supple. Trachea midline. No JVD. Cardiovascular: Regular rate and rhythm. She is without murmur or gallop. Lungs: Clear to auscultation anteriorly. Equal excursion. Diminished posterior bases secondary to poor inspiratory effort. Abdomen: Round, soft, nontender. Positive bowel sounds. Genitourinary: Not inspected. Conde catheter remains in place. Extremities: Continue with tight 4+ edema, though this is slightly softer compared to 1-2 days ago. She continues with some facial edema. Integumentary: Patient continues with petechiae and bruising to her abdomen and to her upper and lower extremities. No indications for any changes. We will continue to monitor. Neurological: She remains alert and oriented x3. ASSESSMENT AND PLAN: 1. Nephrotic syndrome. Patient's BUN and creatinine remain stable. She continues on IV Lasix with Zaroxolyn secondary to her fluid volume overload. We will continue to monitor. Due to previous biopsy with minimal change disease and continued poor control with fluid volume, we will plan for an ultrasound-guided renal biopsy today. Patient is to remain n.p.o. We will check hemoglobins q.4 hours. Patient is to stay flat for the 6, resume diet as tolerated, with indications for the nurses of when to call for any changes. This is been explained to the patient, including possible complications of this, and she is agreeable to proceed. 2. Electrolytes with acid-base balance. Mild hypokalemia. Dr. Jiménez has ordered potassium replacement therapy. 3. Acid-base balance. This remains stable. 4. Anemia. This has improved status post transfusion. I would like to thank you for allowing us to follow with this patient. Seen, data reviewed, discussed with Richard Mckeon on 10/28/16. I agree with the above assessment and plan of care. rg Dictated by NICHOLAS Rincon for Arnav Roldan MD [facility]
--- NOTE | 2016-10-28 16:43 | PALLIATIVE CARE CONSULTATION ---
DATE: 10/28/2016 REQUESTING PROVIDER: NICHOLAS Rincon. REASON FOR CONSULTATION: Assist with goals of care related to frequent hospitalizations. HISTORY OF PRESENT ILLNESS: This is a 26-year-old female with a past medical history of nephrotic syndrome diagnosed about 3 months ago, history of seizure, hypertension, hypothyroidism, and dyslipidemia. She was most recently admitted on 10/23/2016 after presenting to the ER with complaints of edema and difficulty with urination. Currently Ms. Major is lying in the hospital bed. She has just recently returned to the room from a renal biopsy. She does not complain of pain at this time. She states that her edema has improved. There is no family at the bedside. The palliative care team has been consulted to assist with goals of care. REVIEW OF SYSTEMS: Twelve point review of system has been conducted and otherwise negative except those mentioned in the HPI. PAST MEDICAL HISTORY: See HPI. PAST SURGICAL HISTORY: History of dialysis catheter placement. SOCIAL HISTORY: Prior to this admission she lived with her adoptive father. Alcohol and tobacco use is described as past use. Drug use has been denied. FAMILY HISTORY: None pertinent. PHYSICAL EXAMINATION: General: This is a very pleasant, 26-year-old female, who does not appear to be in any acute distress. HEENT: Atraumatic, normocephalic. Neck: Supple. Cardiovascular: Regular rate and rhythm. Pulmonary: Lung sounds are decreased. Respirations are nonlabored. Abdomen: Distended, soft. Bowel sounds active. Extremities: There is 3+ pitting edema noted. Skin: Scattered bruising noted to upper extremities. Skin is pale, warm, and dry. Neurologic: She is alert and oriented x3. IMPRESSION: This is a 26-year-old female with a past medical history as listed above in the HPI. Ms Major has had multiple admissions related to her nephrotic syndrome since the beginning of this year. We discussed medication compliance and compliance with attending her doctor's appointments. We also discussed advanced directive and power of collections attorney. She does not have either document. However, she states that her adoptive father, who is her primary caregiver, will make all of the medical decisions in the event that she cannot speak for herself. As previously mentioned, Ms. Major does not have any acute complaints at this time. The palliative care team will continue to follow. Thank you for this consultation. Dictated by NICHOLAS Du for Ovi Pagan MD
--- NOTE | 2016-10-28 18:46 | PROGRESS NOTE ---
DATE: 10/28/2016 SUBJECTIVE: Patient is seen earlier this morning. She was lying in bed, had very little to say. She was scheduled for renal biopsy via ultrasound-guided technique. OBJECTIVE: Afebrile. Pulse in the 90s, respirations 16, blood pressure 138/101. O2 saturation on 2 L per nasal cannula 95%. HEENT: On exam the swelling in her cheeks has diminished markedly and almost resolved. Neck: No significant swelling. CV: RRR without murmur. Lungs: Diminished breath sounds at the bases. Cannot rule out rare crackle on the right but improved. Abdomen: Remains mildly distended. She has some moderate ascites. Extremities: 4+ edema. Neuro: Nonfocal. LAB DATA: Shows white count 11.13, hemoglobin 11.5, platelets 181,000. Sodium 139, potassium 2.8, chloride 106, CO2 20. BUN 53, creatinine 1.5. Calcium 7.3. ASSESSMENT: 1. Nephrotic syndrome. 2. Renal insufficiency related to #1. 3. Hypokalemia. 4. Anemia. 5. History of minimal change disease. 6. Anasarca still prominent. 7. Possible right pneumonia improved on exam. 8. Hypoalbuminemia. PLAN: Patient is scheduled for renal biopsy again today. Continue Zaroxolyn, Lasix, Zosyn, physical therapy. We have encouraged the patient in cooperating with physical therapy and getting up out of bed but so far, to no avail. Continue to try to push p.o. nutrition.
[2016-10-28] MEDS: LEXAPRO PO SCH (20:34)
[2016-10-28] MEDS: TUMS EXTRA STRENGTH PO SCH (20:34)
[2016-10-29] MEDS: LASIX 200 MG in NS 25 ML IV SCH ×3 (00:31→17:09)
[2016-10-29] MEDS: DUONEB (A & A) INH SCH ×5 (03:32→23:43)
[2016-10-29] MEDS: ZOSYN 2.25 GM/NS 50 ML IV SCH ×3 (05:14→21:02)
[2016-10-29] MEDS: SYNTHROID PO SCH ×2 (05:46→06:04)
[2016-10-29] MEDS: TUMS EXTRA STRENGTH PO SCH ×2 (08:08→21:01)
[2016-10-29] MEDS: CENTRUM TABLET PO SCH (08:09)
[2016-10-29] MEDS: MYCOSTATIN SUSP PO SCH ×4 (08:09→21:29)
[2016-10-29] MEDS: KLOR-CON PO SCH ×2 (08:09→21:01)
[2016-10-29] MEDS: CULTURELLE PO SCH ×2 (08:09→21:01)
[2016-10-29] MEDS: ZAROXOLYN PO SCH (08:09)
[2016-10-29] MEDS: KEPPRA PO SCH ×2 (08:09→21:01)
[2016-10-29] MEDS: PREDNISONE PO SCH (08:09)
[2016-10-29] MEDS: SODIUM CHLORIDE 0.9% INJ SCH (08:10)
[2016-10-29] MEDS: PROTONIX IV SCH (08:10)
[2016-10-29] MEDS ORDERED: CALMOSEPTINE OINTMENT TOP PRN (09:55)
--- NOTE | 2016-10-29 12:31 | PROGRESS NOTE ---
DATE: 10/29/2016 SUBJECTIVE: Ms. Major is resting quietly in bed. She states that she is feeling a little bit better today. She has no complaints of pain. No increased work of breathing. OBJECTIVE: Her most recent vital signs, temperature is 98 degrees, blood pressure 137/94, heart rate 99, respirations are 20. She is currently on O2 2 L nasal cannula. Last recorded saturation is 93%. She has had 1302 in. She has had 2200 out per Conde catheter. LABS: This a.m. have not been drawn. We will order a renal study to continue to monitor her electrolytes. Otherwise her creatinine has remained stable. Her most recent hemoglobin is 13.1 status post renal biopsy. PHYSICAL EXAMINATION: General: This is a 26-year-old, white female. She is resting quietly in bed. She is in no acute distress. Skin: Warm and dry. HEENT: Normocephalic , atraumatic. Conjunctivae pale. She has ROYCE. Mucous membranes are dry. Neck: Supple. Trachea midline. No JVD. Cardiovascular: Regular rate and rhythm. She is without murmur or gallop. Lungs: Clear to auscultation with poor inspiratory effort. She is on O2, equal excursion. Abdomen: Large, round, soft, nontender. Positive bowel sounds. Her swelling in the abdominal cavity has improved. Extremities: She continues with 2 to 3+ lower extremity edema. This continues to improve. Also facial edema has improved in the last 48 hours. Integumentary: She continues with a rash to her abdomen and upper and lower extremities, more likely petechiae secondary to her swelling. Neurological: She is alert and oriented x3. ASSESSMENT AND PLAN: 1. Nephrotic syndrome. Patient's BUN and creatinine remain stable. She continues on IV Lasix. We have no recent labs from today. We will order some for the a.m. She is status post renal biopsy. Results are currently pending. We will hope to have them by Tuesday. We would like to keep the patient in over the weekend and continue with our current therapy of Lasix and metolazone and continue with physical therapy getting patient up. 2. Electrolytes with acid-base balance. She has a history of hypokalemia. Again, we will order labs in the a.m. 3. Acid-base balance. This has been stable. 4. Anemia. This has improved status post transfusion. I would to thank you for allowing us to follow with this patient. Seen, data reviewes, discussed with Richard Mckeon on 10/29/16. I agree with the above assessment and plan of care. Dictated by NICHOLAS Rincon for Arnav Roldan MD [facility]
[2016-10-29] MEDS ORDERED: MILK OF MAGNESIA PO ONE (12:41)
--- NOTE | 2016-10-29 13:08 | PROGRESS NOTE ---
DATE: 10/29/2016 SUBJECTIVE: Patient more upbeat today, seems more cooperative. Had renal biopsy yesterday. OBJECTIVE: Afebrile. Blood pressure mildly elevated at times. CV: RRR. Lungs: CTA. Abdomen: Mild edema over the abdomen. Extremities: Mild improvement, maybe 3+, lower extremity edema today. Hemoglobin is good at 12 to 13. ASSESSMENT: 1. Nephrotic syndrome. 2. Renal insufficiency. 3. Hypokalemia, treated. 4. Anemia, resolved, after transfusion. 5. Minimal disease with currently pending second renal biopsy. 6. Anasarca, improving. 7. Right pneumonia, improving clinically. 8. Hypoalbuminemia. PLAN: Continue present treatments. Continued to work with physical therapy and try to change some of her medications to oral and get her to stooling. She has not had a bowel movement in a few days. Increase p.o. intake. Again, she seems more cooperative and I tried to encourage her to work with physical therapy to improve her strength. Await renal biopsy. Continue Robert Hernandez Zosyn.
[2016-10-29 13:29] LABS: ALBUMIN 1.4 g/dL (3.5-5.0); CALCIUM 7.2 mg/dL (8.8-10.2)
--- NOTE | 2016-10-29 13:55 | Diag Imaging Result Document ---
PROCEDURE NAME: FLAT/UPRIGHT ABD/1 VIEW CHEST - 10/29/2016 FLAT AND UPRIGHT AND CHEST, 3 VIEWS: FINDINGS: Chest is compared to 10/23/2016. Interval decrease in size of the right-sided pleural effusion. Decreased infiltrates and atelectasis in the right lung compared to the prior study. The heart is not enlarged. The left lung is clear. No free air beneath the diaphragm. There are air-filled loops of small bowel in the colon. No organomegaly. No foreign body. No abnormal abdominal calcifications. Patient may have a small amount of ascites. IMPRESSION: Marked interval improvement in the right infiltrates and atelectasis as well as decrease in the right pleural effusion.
[2016-10-29] MEDS: LEXAPRO PO SCH (21:01)
[2016-10-30] MEDS: LASIX 200 MG in NS 25 ML IV SCH ×3 (01:40→16:34)
[2016-10-30] MEDS: MORPHINE IV PRN ×2 (02:16→20:28)
[2016-10-30] MEDS: DUONEB (A & A) INH SCH ×6 (03:59→23:16)
[2016-10-30] MEDS: ZOSYN 2.25 GM/NS 50 ML IV SCH ×3 (04:42→20:28)
[2016-10-30] MEDS: PROTONIX PO SCH (06:33)
[2016-10-30] MEDS: SYNTHROID PO SCH (06:33)
[2016-10-30 07:18] LABS: HEMATOCRIT 34.3 % (37.0-47.0); HEMOGLOBIN 11.7 g/dL (12.0-16.0); MCH 29.3 PG (27-31); MCHC 34.1 g/dL (33-37); MPV 11.8 FL (7.4-10.4); RBC 3.99 XMIL (4.2-5.4)
[2016-10-30 07:38] LABS: ALBUMIN 1.1 g/dL (3.5-5.0); CALCIUM 7.3 mg/dL (8.8-10.2); POTASSIUM 3.1 mmol/L (3.5-5.1)
[2016-10-30] MEDS ORDERED: KLOR-CON PO ONE (08:51)
[2016-10-30] MEDS: ZAROXOLYN PO SCH (09:42)
[2016-10-30] MEDS: PREDNISONE PO SCH (09:42)
[2016-10-30] MEDS: KLOR-CON PO SCH ×2 (09:44→20:28)
[2016-10-30] MEDS: TUMS EXTRA STRENGTH PO SCH ×2 (09:44→20:28)
[2016-10-30] MEDS: CENTRUM TABLET PO SCH (09:44)
[2016-10-30] MEDS: KEPPRA PO SCH ×2 (09:44→20:28)
[2016-10-30] MEDS: CULTURELLE PO SCH ×2 (09:45→20:28)
[2016-10-30] MEDS: MYCOSTATIN SUSP PO SCH ×4 (09:46→20:28)
--- NOTE | 2016-10-30 12:17 | PROGRESS NOTE ---
DATE: 10/30/2016 Anna is more alert and awake. She denied any pain. No fever or chills. Oral intake is good. Denied any nausea, vomiting. OBJECTIVE: Vital Signs: Vital signs noted. Patient is afebrile. Her diastolic blood pressure was 114 which is unusual. Will recheck it. Lungs: Bibasilar crepitations. Heart: S1 and S2 heard. Abdomen: Soft, globular. Bowel sounds present. Patient does have bilateral leg swelling. Central Nervous System: Alert, awake, answering questions fairly well. LAB DATA: Done today. WBC count 13.66, hemoglobin 11.7, hematocrit 34.3, platelet count 196,000, electrolytes did reveal potassium of 3.1. BUN 51, creatinine 1.3. CONSIDERATION: 1. Chronic kidney disease. The patient does have nephrotic syndrome. 2. Hypokalemia. I am going to check magnesium level. Minimal change disease. 3. History suggestive of pneumonia. The patient is doing fair. We will continue current treatment and close observation.
[2016-10-30] MEDS: LEXAPRO PO SCH (20:28)
--- NOTE | 2016-10-30 20:40 | PROGRESS NOTE ---
DATE: 10/30/2016 TIME SEEN: 0855 SUBJECTIVE: Ms. Major is currently resting in bed. She states that she is tired. She does not want to be examined though she has no complaints outside of being tired. Denies chest pain. Denies increased work of breathing. OBJECTIVE: Her most recent vital signs her temperature is 97.5 degrees, blood pressure 141/114, heart rate is 99, respirations are 20. She is on room air. Last recorded saturation is 98%. She has had 980 in. She has had 2350 out. LABS: This a.m. sodium 131, potassium 3.1, chloride 100, CO2 17, BUN 51, creatinine 1.3, glucose 123, her anion gap is 14, calcium is 7.3, phosphorus 4.2, magnesium is 1.6 with an albumin of 1.1. White count 13.66, hemoglobin 11.7, hematocrit 34.3 with a platelet count of 196,000. We have been notified per Dr. Roldan that patient's renal biopsy has indicated that she has focal segmental glomerular sclerosis (FSGS) noted on her renal biopsy. Official report to be sent. PHYSICAL EXAMINATION: General: This is a 26-year-old white female. She is resting quietly in bed. She is in no acute distress. Skin is warm and dry. HEENT: Normocephalic, atraumatic. Conjunctivae pale. Pupils are equal and reactive to light. Mucous membranes are dry. Neck: Supple. Trachea midline. No JVD. Cardiovascular: Regular rate and rhythm. She is without murmur or gallop. Lungs: Clear to auscultation with poor inspiratory effort. She is currently on O2, equal excursion. Abdomen: Large, round, soft, nontender, positive bowel sounds. Swelling continues to the abdominal and trunk though it is improved over the last 3-4 days. Extremities: Continues with 2 to 3+ lower extremity edema. This is improving also over the last several days. Facial edema has improved. Integumentary: She continues with a slight petechia type rash to her abdomen upper and lower extremities more likely secondary to swelling nonraised or palpable. Neurological: She is alert and oriented x3. ASSESSMENT AND PLAN: 1. Nephrotic syndrome. Patient's renal biopsy has indicated that she has focal segmental glomerular sclerosis. She remains on prednisone 60 mg daily. She continues on IV Lasix to assist with swelling. We have encouraged increase p.o. intake to increase her protein level with an albumin last recorded at 1.1. 2. Electrolytes and acid-base balance. Patient continues with hypokalemia. Her magnesium is low. She has had magnesium and potassium supplement ordered. 3. Acid-base balance. This is stable. 4. Anemia. This has improved status post transfusion remains stable. I would like to thank you for allowing us to follow with this patient. Data reviewed. i agree with the above assessment and plan of care. rg Dictated by NICHOLAS Rincon for Arnav Roldan MD [facility]
[2016-10-31] MEDS: LASIX 200 MG in NS 25 ML IV SCH ×3 (01:17→16:52)
[2016-10-31] MEDS: MORPHINE IV PRN (01:37)
[2016-10-31] MEDS: DUONEB (A & A) INH SCH ×6 (03:27→23:14)
[2016-10-31] MEDS: PROTONIX PO SCH (07:04)
[2016-10-31] MEDS: ZOSYN 2.25 GM/NS 50 ML IV SCH ×2 (07:04→12:19)
[2016-10-31] MEDS: SYNTHROID PO SCH (07:04)
[2016-10-31 07:16] LABS: ALBUMIN 1.2 g/dL (3.5-5.0); POTASSIUM 3.6 mmol/L (3.5-5.1)
[2016-10-31 07:36] LABS: CALCIUM 7.1 mg/dL (8.8-10.2)
[2016-10-31] MEDS: TUMS EXTRA STRENGTH PO SCH ×2 (07:50→22:22)
[2016-10-31] MEDS: VITAMIN D PO SCH (08:39)
[2016-10-31] MEDS: MYCOSTATIN SUSP PO SCH ×4 (08:39→22:27)
[2016-10-31] MEDS: PREDNISONE PO SCH (08:40)
[2016-10-31] MEDS: KLOR-CON PO SCH ×2 (08:40→22:22)
[2016-10-31] MEDS: CULTURELLE PO SCH ×2 (08:41→22:21)
[2016-10-31] MEDS: ZAROXOLYN PO SCH (08:41)
[2016-10-31] MEDS: KEPPRA PO SCH ×2 (08:41→22:22)
[2016-10-31] MEDS: CENTRUM TABLET PO SCH (08:41)
[2016-10-31] MEDS: TRANDATE PO SCH ×2 (09:09→22:22)
[2016-10-31] MEDS: ZOFRAN IV PRN (09:13)
--- NOTE | 2016-10-31 09:51 | PROGRESS NOTE ---
DATE: 10/31/2016 SUBJECTIVE: Ms Castillo is feeling better. She denied any fever or chills. The patient does have some back pain. No nausea or vomiting. Oral intake is fair. OBJECTIVE: Vital signs: Noted. Diastolic blood pressure is high. Fixture Fabricator Repairer is following patient with us. Lungs: Bibasilar crepitations. Heart: S1 and S2 heard. Abdomen: Soft, globular. Bowel sounds present. MILL SUPERVISOR: Alert, awake. Able to move all 4 limbs. Patient does have swelling of lower limb. LAB DATA: Done today revealed potassium of 3.6, BUN 51, creatinine 1.2. Magnesium I checked yesterday was 1.6. CONSIDERATION: 1. Hypokalemia which improved. 2. Nephrotic syndrome. 3. Hypertension. 4. Anemia. 5. Generalized anasarca. PLAN: Labs and medications noted. We will continue current treatment and close observation.
[2016-10-31] MEDS: NORVASC PO SCH (10:41)
[2016-10-31] MEDS: ZOSYN 2.25 GM in NS 100 ML IV SCH (22:21)
[2016-10-31] MEDS: LEXAPRO PO SCH (22:22)
[2016-11-01] MEDS: DUONEB (A & A) INH SCH ×6 (03:45→23:07)
[2016-11-01] MEDS: LASIX 200 MG in NS 25 ML IV SCH ×3 (03:58→19:01)
[2016-11-01] MEDS: MORPHINE IV PRN ×2 (04:31→19:39)
[2016-11-01] MEDS: ZOSYN 2.25 GM in NS 100 ML IV SCH ×2 (05:36→10:06)
[2016-11-01] MEDS: SYNTHROID PO SCH ×2 (05:36→10:08)
[2016-11-01 07:54] LABS: ALBUMIN 1.1 g/dL (3.5-5.0); CALCIUM 7.5 mg/dL (8.8-10.2); POTASSIUM 3.6 mmol/L (3.5-5.1)
[2016-11-01] MEDS ORDERED: ALBUMIN 25% IV ONE (10:42)
[2016-11-01] MEDS: KLOR-CON PO SCH ×2 (10:47→22:39)
[2016-11-01] MEDS: CULTURELLE PO SCH ×2 (10:47→22:39)
[2016-11-01] MEDS: ZAROXOLYN PO SCH (10:47)
[2016-11-01] MEDS: TUMS EXTRA STRENGTH PO SCH ×2 (10:47→22:40)
[2016-11-01] MEDS: CENTRUM TABLET PO SCH (10:48)
[2016-11-01] MEDS: KEPPRA PO SCH ×2 (10:48→22:39)
[2016-11-01] MEDS: TRANDATE PO SCH ×2 (10:48→22:39)
[2016-11-01] MEDS: PREDNISONE PO SCH (10:48)
[2016-11-01] MEDS: NORVASC PO SCH (10:48)
[2016-11-01] MEDS: PROTONIX PO SCH (10:48)
[2016-11-01] MEDS: MYCOSTATIN SUSP PO SCH ×4 (11:01→22:40)
[2016-11-01] MEDS: MAG-OX PO SCH (11:01)
--- NOTE | 2016-11-01 13:12 | PROGRESS NOTE ---
DATE: 11/01/2016 SUBJECTIVE: The patient continues lying in bed, not very active. No specific complaints other than having to maintain renal diet. OBJECTIVE: Vital Signs: Afebrile, pulse 96, respirations 16, blood pressure 158/112. Is and Os - 1366. Eating 25-75% of her meals. Vomited x1. Three BMs in the past two days. CV: RRR. Lungs: CTA. Abdomen: Mild to moderate edema over the abdomen. Extremities: There is 3+ lower extremity edema. Neurologic: Nonfocal. Laboratories: Show a white count of 13.6, hemoglobin 11.7, platelets 196,000. That was done on the . Yesterday, sodium 131, potassium 3.6, BUN 51, creatinine 1.2. Magnesium the day before yesterday 1.6. Albumin 1.2. ASSESSMENT: 1. Nephrotic syndrome found on recent biopsy believed to be caused by focal glomerulosclerosis. 2. Hypokalemia and hypomagnesemia. Repleted. 3. Anemia, stable after transfusions of 2 units in all during the hospitalization. 4. Possible right pneumonia. 5. Hypoalbuminemia. PLAN: Encouraged activity to increase. Advised in renal diet. We will try to discharge her home in the next [address] Hernandez. For now, continue Lasix and Zaroxolyn and treatment. Continue prednisone as well.
[2016-11-01] MEDS: ZOSYN 2.25 GM/NS 50 ML IV SCH ×2 (14:29→22:38)
--- NOTE | 2016-11-01 17:00 | PROGRESS NOTE ---
DATE: 11/01/2016 SUBJECTIVE: Patient is sitting up on the side of the bed with help from physical therapy and the professional nursing assistant. She refuses to try to stand or walk. OBJECTIVE: Vital Signs: Temperature 97.7 degrees, pulse 93, respiratory rate 16, blood pressure 123/97. Intake and output: Intake 130 mL. Output 1.50. General: Young female sitting up on the side of bed. She is awake and alert. HEENT: Normocephalic, atraumatic. Oral mucosa is moist. Neck: Supple. No JVD. Cardiovascular: Regular rate and rhythm. No murmur or gallop. Pulmonary: Equal excursion. She is clear bilaterally. Abdomen: Soft. Positive bowel sounds. She continues to have some distention with pitting edema noted to the abdomen and dependent areas the hips. : Not inspected. She has a Conde. Extremities: Continues with 3 + soft pretibial edema. Integumentary: Skin is warm and dry otherwise. LAB DATA: WBC of 13.6, hemoglobin 11.7. Sodium 130, potassium 3.6, CO2 19, BUN 52, creatinine 1.2, calcium 7.5, albumin 1.0. ASSESSMENT AND PLAN: 1. 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 Continues on prednisone therapy. 2. Anasarca, third spacing. Secondary to #1. Continue with diuretics. We will add some albumin today to see if this will help improve her edema. 3. Electrolytes. Acceptable. 4. Anemia. Stable. 5. Disposition. Understand the patient is to be discharged home in the next 48 hours possibly. She would follow up in our office 2 weeks after that. I did discuss with the patient the importance of being able to ambulate prior to discharge so that she could go home. Data reviewed, discussed with Manda Childs on 11/01/16. I agree with the above assessment and plan of care. rg Dictated by NICHOLAS Merchant for Arnav Roldan MD [facility]
[2016-11-01] MEDS: LEXAPRO PO SCH (22:39)
[2016-11-02] MEDS: DUONEB (A & A) INH SCH ×6 (03:17→23:00)
[2016-11-02] MEDS: MORPHINE IV PRN (03:28)
[2016-11-02 07:44] LABS: ALBUMIN 1.6 g/dL (3.5-5.0); CALCIUM 7.2 mg/dL (8.8-10.2)
[2016-11-02] MEDS: ZOSYN 2.25 GM/NS 50 ML IV SCH (07:54)
[2016-11-02] MEDS: SYNTHROID PO SCH (07:56)
[2016-11-02] MEDS: LASIX 200 MG in NS 25 ML IV SCH ×3 (07:56→21:38)
[2016-11-02] MEDS: PROTONIX PO SCH (07:57)
[2016-11-02] MEDS: CULTURELLE PO SCH ×2 (09:03→21:38)
[2016-11-02] MEDS: ZAROXOLYN PO SCH (09:03)
[2016-11-02] MEDS: CENTRUM TABLET PO SCH (09:03)
[2016-11-02] MEDS: MAG-OX PO SCH (09:04)
[2016-11-02] MEDS: KLOR-CON PO SCH ×2 (09:04→21:37)
[2016-11-02] MEDS: NORVASC PO SCH (09:04)
[2016-11-02] MEDS: KEPPRA PO SCH ×2 (09:04→21:38)
[2016-11-02] MEDS: TRANDATE PO SCH ×2 (09:04→21:38)
[2016-11-02] MEDS: PREDNISONE PO SCH (09:04)
[2016-11-02] MEDS: MYCOSTATIN SUSP PO SCH ×4 (09:06→21:48)
[2016-11-02] MEDS: TUMS EXTRA STRENGTH PO SCH ×2 (09:14→21:48)
--- NOTE | 2016-11-02 16:03 | PROGRESS NOTE ---
DATE: 11/02/2016 TIME SEEN: 08 SUBJECTIVE: Ms. Major is resting quietly in bed. She has just finished her breakfast. She has no complaints. OBJECTIVE: Her most recent vital signs, her temperature is 98.3 degrees, blood pressure 130/82, heart rate 82, respirations 16. She is on room air. Last recorded saturation 94%. She has had 856 in. She has had 1600 out per Conde catheter. LABS: Sodium 132, potassium 4, chloride 103, CO2 19, BUN 54, creatinine 1.2, glucose 179, anion gap 10, calcium 7.2, phosphorus 4.4, albumin 1.6. Hemoglobin 11.6 on the 11th. PHYSICAL EXAM: This is a 26-year-old white female. She is currently resting in bed. She is in no acute distress.Skin: Warm and dry. HEENT: Normocephalic, atraumatic. Conjunctivae pale. She has ROYCE. Mucous membranes moist. Neck: Supple. Trachea midline. No JVD. Cardiovascular: Regular rate and rhythm. No murmur or gallop appreciated. Lungs: Clear to auscultation anterior. Equal excursion on O2. Abdomen: Soft, round. Continues with distention with pitting edema to the upper dependent areas of her abdomen and hip with small petechiae. Genitourinary: Not inspected. Conde catheter remains in place. Extremities: Continues with 3 + soft pretibial edema. Integumentary: As noted with petechiae to the upper thigh, lower extremity and abdomen secondary to swelling. Neurological: As mentioned above. Alert and oriented x3. ASSESSMENT AND PLAN: 1. 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 She continues on her prednisone therapy. She remains on fluid restriction. 2. Anasarca. Patient continues to third space secondary to her nephrotic syndrome. She continues on her diuretic. She has had albumin added to help assistance with her edema. 3. Electrolytes. These remain stable. 4. Anemia. This remains stable. 5. Hypertension. Labetalol has been added. Patient's blood pressure has improved. We will continue to monitor. 6. Malnutrition. Patient is now on albumin x2 doses to assist with her fluid volume. She has been encouraged to continue on a 1 L fluid restriction and restrict her sodium intake. DISPOSITION: 1. Patient states that she is ready to go home. It is indicated that she may possibly be discharged in the next 48 hours. We have discussed followup in our office within 2 weeks after that discharge. 2. Possible depression. Patient continues at this time on Lexapro per Dr. Jiménez. I would like to thank you for allowing us in assist with this patient's care. Data reviewed, discussed with Richard Mckeon on 11/02/16. I agree with the above assessment and plan of care. rg Dictated by NICHOLAS Rincon for Arnav Roldan MD [facility]
--- NOTE | 2016-11-02 17:46 | PROGRESS NOTE ---
DATE: 11/02/2016 SUBJECTIVE: Patient continues to rest in bed under a warming blanket. She seems more upbeat today but has not been actively participating in her care. She has not been cooperating with physical therapy. She has Conde catheter in place and is not willing to get up and move about. OBJECTIVE: CV: RRR. Lungs: CTA. Extremity: 2 to 3+ lower extremity edema. Neuro: Nonfocal. LAB DATA: Shows creatinine 1.2, BUN 54, potassium 4.0, sodium 132. Latest hemoglobin 11.6. ASSESSMENT: 1. Focal segmental glomerulosclerosis. 2. Nephrotic syndrome associated with #1. 3. Anasarca. 4. Hypokalemia/hypomagnesemia. 5. Anemia, improved. 6. Hypertension. 7. Malnutrition with low albumin levels. 8. Depression. PLAN: Continue treatment to include prednisone, fluid restriction, sodium restriction. Continue labetalol started by nephrology. Continue diuretics aggressively. Albumin has been administered by nephrology. She remains on Lexapro. Will continue that. We will stop her Conde catheter and warming blanket and ask her to participate in her care and to get active with physical therapy. She spends a lot of time today talking about that she wants a dog for a orchard manager. Her adoptive father is reluctant as he cannot take care of her, he does not know how he can take care of the dog and I concur. Patient needs maximum assistance herself so I discouraged the dog purchase at this time in order to concentrate on her health. Will plan on discharge in the morning if the patient improves.
[2016-11-02] MEDS: LEXAPRO PO SCH (21:38)
[2016-11-02] MEDS: TYLENOL PO PRN (22:16)
[2016-11-03] MEDS: DUONEB (A & A) INH SCH ×6 (03:35→23:38)
[2016-11-03] MEDS: LASIX 200 MG in NS 25 ML IV SCH ×2 (04:08→09:21)
[2016-11-03] MEDS: PROTONIX PO SCH (06:28)
[2016-11-03] MEDS: SYNTHROID PO SCH (06:28)
[2016-11-03 07:18] LABS: AGAP 14; ALBUMIN 1.2 g/dL (3.5-5.0); BUN 52 mg/dL (8-22); CALCIUM 7.8 mg/dL (8.8-10.2); CHLORIDE 100 mmol/L (98-107); COSMO 276; POTASSIUM 4.1 mmol/L (3.5-5.1); SODIUM 128 mmol/L (136-145); TCO2 14 mmol/L (25-35)
[2016-11-03] MEDS: KEPPRA PO SCH ×2 (09:19→20:20)
[2016-11-03] MEDS: ZAROXOLYN PO SCH (09:19)
[2016-11-03] MEDS: MAG-OX PO SCH (09:20)
[2016-11-03] MEDS: CULTURELLE PO SCH ×2 (09:20→20:20)
[2016-11-03] MEDS: CENTRUM TABLET PO SCH (09:20)
[2016-11-03] MEDS: KLOR-CON PO SCH ×2 (09:20→20:20)
[2016-11-03] MEDS: PREDNISONE PO SCH (09:20)
[2016-11-03] MEDS: NORVASC PO SCH (09:20)
[2016-11-03] MEDS: TRANDATE PO SCH ×2 (09:20→20:19)
[2016-11-03] MEDS: TUMS EXTRA STRENGTH PO SCH ×3 (09:21→20:20)
[2016-11-03] MEDS: MYCOSTATIN SUSP PO SCH ×4 (09:22→20:20)
--- NOTE | 2016-11-03 12:36 | PROGRESS NOTE ---
DATE: 11/03/2016 SUBJECTIVE: Patient said she tried to get up with physical therapy some yesterday but was unable to. She is going to try again this afternoon, she says. She has not been able to ambulate thus far at all. OBJECTIVE: Vital Signs: Afebrile. Pulse 79, respirations 16, blood pressure 134/102, O2 saturation on room air 97 and 99%. CV: RRR without murmur. Lungs: CTA. Abdomen: Mild to moderate ascites along the abdomen with some petechia still. Extremities: Also, 3+ lower extremity edema. Is and Os: Show 856 in and 1600 out. Ate 100% of her breakfast this morning. One BM. ASSESSMENT: 1. Focal segmental glomerulosclerosis. 2. Nephrotic syndrome. 3. Anasarca. 4. Hypokalemia/hypomagnesemia, repleted. 5. Anemia, stable. 6. Hypertension. 7. Malnutrition with low albumin levels. 8. Depression. PLAN: Continue to work aggressively with physical therapy. We have got her Conde catheter out. The warming blanket is off of her. She is off all narcotic pain medicines. We have encouraged her to walk diligently with the physical therapy team to try to improve her strength so that she can go home. I am ready from a medical standpoint to send her home when she can ambulate. We will change IV Lasix to oral with aggressive treatment, along with the Zaroxolyn and continued prednisone.
[2016-11-03] MEDS: LASIX PO SCH ×2 (13:27→20:19)
--- NOTE | 2016-11-03 15:11 | PROGRESS NOTE ---
DATE: 11/03/2016 TIME SEEN: 0810. SUBJECTIVE: Ms. Major is resting quietly in bed. She is in no acute distress. She states that she is cold. She has had her heater to her bed turned off. OBJECTIVE: Her most recent vital signs: Her temperature is 98.3 degrees, blood pressure 139/97. Heart rate 87 and respirations. She is currently on room air. Last recorded saturation 99%. She has had 350 In. She has had 250 Out though she states that she has had more than that upon questioning. LABORATORY DATA: Her sodium is 128, potassium 4.1, chloride 100, CO2 of 14. BUN is 52. Her creatinine is 1.1. Glucose is 188. Her calcium is 7.8, anion gap of 14, phosphorus 4.1, albumin 1.2. Previous hemoglobin 11.7 on 10/30/2016. PHYSICAL EXAMINATION: This is a 26-year-old white female. She is currently resting in bed. She is in no acute distress. Her skin is warm and dry. HEENT: Normocephalic, atraumatic. Conjunctivae pale. She has ROYCE. Mucous membranes moist. Neck is supple. Trachea midline. No JVD. Cardiovascular: Regular rate and rhythm. She has no murmur or gallop appreciable today. Lungs are clear to auscultation anteriorly. Equal excursion on O2. Abdomen is soft, round, nontender. Positive bowel sounds. It continues slightly distended with some pitting though this has improved over the last week with noted some healing stages of petechiae. Genitourinary: Not inspected. The patient continues with Conde catheter. Adequate urine out. Integumentary: Again, the patient has petechiae noted to her upper thighs and lower abdominal area secondary to possible anasarca and swelling. No changes. These are healing. Neurological: Alert and oriented x3. ASSESSMENT AND PLAN: 1. 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 Patient continues on her current prednisone therapy. She is on a fluid restriction. Creatinine remains stable. 2. Anasarca. This continues to improve. She remains on her diuretic therapy of Lasix and metolazone. No changes at this time. We have continued to go up slightly on her albumin levels. 3. Anemia. This remains stable. 4. Hypertension. The patient's blood pressure has improved over the last 24 hours. 5. Malnutrition. Again, the patient has nephrotic syndrome with loss of protein. We have encouraged her to have at least 2 animal products of protein a day and no more. I would to thank you for allowing us to follow with this patient. Seen, data reviewed, discussed with Richard Mckeon on 11/03/16. I agree with the above assessment and plan of care. rg Dictated by NICHOLAS Rincon for Arnav Roldan MD [facility]
[2016-11-03] MEDS: LEXAPRO PO SCH (20:20)
[2016-11-03] MEDS: TYLENOL PO PRN (20:20)
[2016-11-03] MEDS: ULTRAM PO PRN (22:44)
[2016-11-04] MEDS: DUONEB (A & A) INH SCH ×6 (03:45→23:33)
[2016-11-04] MEDS: LASIX PO SCH ×3 (06:18→21:06)
[2016-11-04] MEDS: SYNTHROID PO SCH (06:18)
[2016-11-04] MEDS: PROTONIX PO SCH (06:19)
[2016-11-04] MEDS: CULTURELLE PO SCH ×2 (09:32→21:06)
[2016-11-04] MEDS: NORVASC PO SCH (09:32)
[2016-11-04] MEDS: TUMS EXTRA STRENGTH PO SCH ×2 (09:32→21:06)
[2016-11-04] MEDS: ZAROXOLYN PO SCH (09:33)
[2016-11-04] MEDS: PREDNISONE PO SCH (09:33)
[2016-11-04] MEDS: CENTRUM TABLET PO SCH (09:33)
[2016-11-04] MEDS: KEPPRA PO SCH ×2 (09:33→21:07)
[2016-11-04] MEDS: MAG-OX PO SCH (09:33)
[2016-11-04] MEDS: KLOR-CON PO SCH ×2 (09:33→21:07)
[2016-11-04] MEDS: NEORAL PO SCH ×2 (09:34→21:05)
[2016-11-04] MEDS: TRANDATE PO SCH ×2 (09:34→21:06)
[2016-11-04] MEDS: MYCOSTATIN SUSP PO SCH ×4 (09:36→22:18)
[2016-11-04] MEDS ORDERED: CATAPRES PO PRN (13:14)
--- NOTE | 2016-11-04 16:22 | PROGRESS NOTE ---
DATE: 11/04/2016 SUBJECTIVE: Ms. Major is resting quietly in bed. She has her blankets pulled up over her head. She has denial of increased work of breathing or chest pain. OBJECTIVE/PHYSICAL EXAMINATION: Vital Signs: Her most recent vital signs are her temperature is 97.8 degrees, blood pressure 151/108, heart rate 93, respirations 16. She remains on room air. Last recorded saturation 94%. She has had 0 recorded in and out, though she continues with a Conde catheter. We will remind the nurses that she is on a strict I and O. General Appearance: This is a 26-year-old white female. Patient is currently refusing some treatments. She is in no acute distress. Skin: Warm and dry. HEENT: Normocephalic, atraumatic. Conjunctiva is pale. She has Pupils equal, round, and reactive to light. Mucous membranes are moist. Neck: Supple. Trachea midline. No jugular venous distention. Cardiovascular: Regular rate and rhythm. No murmur or gallop appreciable. Lungs: Clear to auscultation anteriorly. Equal excursion. Abdomen: Large, round, soft, nontender. Continues swollen into the thighs. Genitourinary: Not inspected. She has Conde catheter in place. Adequate urine out. Integumentary : No rashes or lesions present with continued old petechiae and stretching noted secondary to swelling. Neurological: She has been alert and oriented x3. LABORATORIES: This a.m. have not been drawn. Her last hemoglobin is 11.7. Her last creatinine 1.1 with an estimated GFR of greater than 60. ASSESSMENT AND PLAN: 1. 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 Patient has had a poor response to her prednisone therapy. We will start cyclosporine 75 mg b.i.d. today. We will continue her prednisone and decreased to 40 mg daily. We will request that she continues on a 1 L fluid restriction, a less than 2 g sodium salt diet, and we will see her in the office in 2 weeks and we will at that time check labs including a cyclosporine level. 2. Total anasarca. This has continued with her diuretic therapy. 3. Electrolytes. These have been stable, though she has not had labs drawn yesterday or today. 4. Anemia. This has been stable after transfusion. 5. Malnutrition. Albumin has remained poor. Again, we have requested that she take nutritional supplement. I would like to thank you for allowing us to follow with this patient. Seen, data reviewed, discussed with Richard Mckeon on 11/04/16. I agree with the abive assessment and plan of care. rg Dictated by NICHOLAS Rincon for Arnav Roldan MD [facility]
[2016-11-04] MEDS: ULTRAM PO PRN (18:33)
[2016-11-04] MEDS: LEXAPRO PO SCH (21:07)
[2016-11-05] MEDS: ULTRAM PO PRN (01:19)
[2016-11-05] MEDS: DUONEB (A & A) INH SCH ×4 (03:18→16:23)
[2016-11-05] MEDS: LASIX PO SCH ×2 (07:00→14:18)
[2016-11-05] MEDS: SYNTHROID PO SCH (07:00)
[2016-11-05] MEDS: PROTONIX PO SCH (07:00)
[2016-11-05] MEDS: CENTRUM TABLET PO SCH (09:27)
[2016-11-05] MEDS: CULTURELLE PO SCH (09:27)
[2016-11-05] MEDS: KEPPRA PO SCH (09:30)
[2016-11-05] MEDS: TRANDATE PO SCH (09:30)
[2016-11-05] MEDS: NORVASC PO SCH (09:30)
[2016-11-05] MEDS: NEORAL PO SCH (09:30)
[2016-11-05] MEDS: PREDNISONE PO SCH (09:31)
[2016-11-05] MEDS: ZAROXOLYN PO SCH (09:32)
[2016-11-05] MEDS: TUMS EXTRA STRENGTH PO SCH (09:35)
[2016-11-05] MEDS: MYCOSTATIN SUSP PO SCH ×2 (09:36→14:20)
[2016-11-05] MEDS: KLOR-CON PO SCH (09:36)
[2016-11-05 11:20] VITALS: BP 138/106
--- NOTE | 2016-11-05 13:41 | PROGRESS NOTE ---
DATE: 11/05/2016 TIME SEEN: 0755 hours. SUBJECTIVE: Ms. Major is currently resting in bed. She has had no complaints, except to being cold. Denies chest pain or increased work of breathing. MOST RECENT VITAL SIGNS: Her most recent vital signs are temperature 98.2 degrees, blood pressure 139/119, heart rate is 92, respirations are 16. She continues on room air. Last recorded saturation is 98%. She has had 360 in. She is not recording her output. We will call the floor and continue to reinforce documentation of her output. MOST RECENT LABS: These have not been drawn with a hemoglobin last noted of 11.7 on the th, and her last creatinine of 1.1 on the th. OBJECTIVE: General: On physical exam, this is a 26-year-old white female. She is currently resting in bed. She is in no acute distress. Skin: Warm and dry. HEENT: Normocephalic, atraumatic. Conjunctivae pale. She has ROYCE. Mucous membranes are moist. Neck: Supple. Trachea midline. No JVD. Cardiovascular: Regular rate and rhythm. No murmur or gallop. Lungs: Clear to auscultation anterior. Diminished posterior bases. She remains on room air. Equal excursion. Abdomen: Large, round, soft, nontender. Positive bowel sounds. She continues swollen from the lower extremities up into the hip sacral area. Abdomen is less swollen than the last several days. Lower Extremities: She continues with 2+ lower extremity edema. These continue to improve. Integumentary: Patient has no rashes or lesions, although she does have some stress oropeza with old petechiae that is currently healing from stretching and swelling. Neurological: Alert and oriented x3. ASSESSMENT AND PLAN: 1. 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 Patient continues on her cyclosporine and prednisone. We will continue to monitor her labs. She remains on a 1 L fluid restriction and a 2 g sodium salt diet. 2. Anasarca. This continues to improve. She remains on a diuretic therapy with Lasix and metolazone. 3. Electrolytes. These have not been repeated in the last several days. We will plan for labs in the morning. 4. Anemia. Patient has had transfusion. This has been stable. We will check labs in the morning. 5. Malnutrition with hypoalbuminemia. We encouraged patient to eat at least 2 protein products daily. I would like to thank you for allowing us to follow with this patient. Seen, data reviewed, discussed with Richard Mckeon on 11/05/16. I agree with the above assessment and plan of care. rg Dictated by NICHOLAS Rincon for Arnav Roldan MD [facility]
[2016-11-05] MEDS: MAG-OX PO SCH (14:20)
--- NOTE | 2016-11-05 16:55 | PROGRESS NOTE ---
DATE: 11/05/2016 SUBJECTIVE: Patient remains supine in bed. Conde catheter is out but she has not been moving a great deal. She refuses. OBJECTIVE: Vital signs: Afebrile, pulse 84, respirations 16, blood pressure 138/106, O2 saturation 97 and 99% on room air. CV: RRR without murmur. Lungs: CTA. Abdomen: Protuberant. Active bowel sounds. Mild ascites. Extremities: Two-plus lower extremity edema. ASSESSMENT: 1. Nephrotic syndrome with focal glomerular sclerosis. 2. Anasarca. 3. Anemia, stable. 4. Malnutrition with hypoalbuminemia. PLAN: Continue to try to motivate the patient. We have done everything we can as far as physical therapy and nursing trying to ambulate and get the patient up in chair. She refuses. She is a young female but will not participate in her own care. We are trying to make arrangements to do that. We are going to strive for home health care and home PT which will be arranged and she will be on cyclosporine and prednisone at home. Will discharge her home to follow up in my office in [address] Roldan in a week. She will continue on aggressive diuretic therapy with Lasix and Zaroxolyn.
== END 2016-11-05 18:31 | disposition home or self-care (01) | DRG 698 ==
LOC: EDBD → ED 08:18 → 4N 16:15
PROVIDERS: ADMIT Family Medicine; ATTEND Family Medicine
PROC: 30233N1 Transfusion of Nonautologous Red Blood Cells into Peripheral Vein, Percutaneous Approach (ICD-10-PCS; 2016-10-23)
PROC: 02HV33Z Insertion of Infusion Device into Superior Vena Cava, Percutaneous Approach (ICD-10-PCS; 2016-10-23)
PROC: B548ZZA Ultrasonography of Superior Vena Cava, Guidance (ICD-10-PCS; 2016-10-23)
PROC: 0TB03ZX Excision of Right Kidney, Percutaneous Approach, Diagnostic (ICD-10-PCS; principal; 2016-10-28)
DX: N04.1 Nephrotic syndrome with focal and segmental glomerular lesions (principal); J18.9 Pneumonia, unspecified organism; E46 Unspecified protein-calorie malnutrition; B37.0 Candidal stomatitis; E87.2 Acidosis; R56.9 Unspecified convulsions; E87.1 Hypo-osmolality and hyponatremia; E87.5 Hyperkalemia; I10 Essential (primary) hypertension; E03.9 Hypothyroidism, unspecified; E78.5 Hyperlipidemia, unspecified; D64.9 Anemia, unspecified; L98.9 Disorder of the skin and subcutaneous tissue, unspecified; E87.6 Hypokalemia; N18.9 Chronic kidney disease, unspecified; E83.42 Hypomagnesemia; F32.9 Major depressive disorder, single episode, unspecified; Z79.899 Other long term (current) drug therapy; Z79.52 Long term (current) use of systemic steroids; Z87.891 Personal history of nicotine dependence
CPT/HCPCS: 50200; 51702; 51798; 71010; 74022; 76942; 80048; 80053; 80069; 80074; 81001; 82040; 82270; 82948; 83516; 83735; 85018; 85025; 85027; 85610; 85651; 85730; 86038; 86160; 86850; 86900; 86901; 86920; 87040; 88300; 88313; 88346; 88348; 93005; 93010; 94640; 94761; 94799; 96365; 96375; C9113; J1940; J2270; J2405; J2543; J7040; J7512; J7515; P9016; 97110-GP; 97530-GP; P9047; S0164